=== PATIENT | female | born 1955 | race American Indian/Alaskan Native ===

== ENCOUNTER 2016-12-22 21:33 | Inpatient (IN) | payer BC ==
[2016-12-22] MEDS ORDERED: TYLENOL PO PRN (21:43)
[2016-12-22] MEDS ORDERED: IMODIUM PO PRN (21:44)
[2016-12-22] MEDS ORDERED: HYDROXYZINE 10 MG PO SCH (22:00)
[2016-12-22] MEDS: CATAPRES PO SCH (22:22)
[2016-12-22] MEDS: ATARAX PO SCH (22:53)
[2016-12-23 06:26] LABS: Basophils % (Auto) 0.6 % (0.0-1.8); Eosinophils % (Auto) 1.3 % (0.0-4.3); Hemoglobin 10.4 gm/dl (10.1-14.3); Mean Corpuscular HGB Conc 32 % (30-34); Mean Corpuscular Volume 82 fl (79-97); Platelet Count 308 K/mm3 (140-440); Red Blood Count 4.04 M/mm3 (3.65-5.03); Red Cell Distribution Width 14.8 % (13.2-15.2); White Blood Count 9.4 K/mm3 (4.5-11.0)
[2016-12-23 06:41] LABS: Mean Corpuscular Hemoglobin 26 pg (28-32)
[2016-12-23 06:50] LABS: Albumin 3.4 g/dL (3.9-5); Albumin/Globulin Ratio 0.9 %; BUN/Creatinine Ratio 13.33; Bilirubin,Total 0.2 mg/dL (0.1-1.2); Calcium 8.9 mg/dL (8.4-10.2); Chloride 104.7 mmol/L (98-107); Potassium 4.1 mmol/L (3.6-5.0); Total Protein 7.3 g/dL (6.3-8.2)
[2016-12-23] MEDS ORDERED: LOVENOX SUB-Q SCH (08:00)
[2016-12-23] MEDS: ASPIRIN PO SCH (09:47)
[2016-12-23] MEDS: CATAPRES PO SCH ×2 (09:47→22:54)
[2016-12-23] MEDS: LEVAQUIN PO SCH (09:47)
[2016-12-23] MEDS: HEPARIN SUB-Q SCH ×2 (09:48→22:55)
--- NOTE | 2016-12-23 11:37 | History and Physical Report ---
History of Present Illness Date: 12/23/16 Referring Facility: [facility] Date of admission: 12/22/16 21:33 Chief Complaint: Right acute/subacute sky radiata CVA History of present illness: POST ADMISSION PHYSICIAN EVALUATION ONSET DATE: 12/19/2016 IMPAIRMENT GROUP CODE: 01.1 ETIOLOGIC DIAGNOSIS: Right acute/subacute sky radiata CVA STATUS CHANGES SINCE PREADMISSION SCREENING: PAS has been reviewed. In comparison, pt is with improved blood pressure control; slightly worsened renal function. Pt has been able to initiate in therapy evaluations on today and is noted to have ongoing functional deficits. Pt remains an appropriate candidate for IRU admission. PREVIOUS FUNCTIONAL STATUS: Independent with ADLs, gait, transfers CURRENT FUNCTIONAL STATUS: modA for bed mobility, transfers, and gait; independent to albaA for ADLs HPI 61 y.o. right handed female admitted to [facility] after complaints of feeling "out of it" while at home; later began with left sided weakness and left foot drop. MRI Brain identified acute/subacute ischemia at right sky radiata. Pt continued with left sided weakness; uncontrolled hypertension with SBP range from 141-214. Pt was found to have significant decline from baseline after therapy evaluations were completed. Pt is now admitted to IRU for aggressive therapies and ongoing medical management. Past History Past Medical History: cancer (skin), hypertension, renal failure (chronic), other (ulcerative colitis) Past Surgical History: Social history: , lives with family. denies: smoking, alcohol abuse Family history: CAD, diabetes, hypertension, stroke Medications and Allergies Allergies Allergy/AdvReac Type Severity Reaction Status Date / Time erythromycin base Allergy Swelling Verified 01/07/16 15:25 hydrocodone Allergy Swelling Verified 01/07/16 15:25 Penicillins Allergy Swelling Verified 01/07/16 15:25 Sulfa (Sulfonamide AdvReac DISCOLORATI Verified 11/08/14 17:07 Antibiotics) ON Home Medications Medication Instructions Recorded Confirmed Last Taken Type cloNIDine [Catapres] 0.3 mg PO BID 01/07/16 12/19/16 01/07/16 History Loperamide [Imodium] 4 mg PO BID PRN #20 capsule 01/08/16 12/19/16 Unknown Rx Doxycycline 40 mg PO DAILY 12/19/16 12/19/16 Unknown History QUEtiapine 100 mg PO DAILY 12/19/16 12/19/16 Unknown History hydrOXYzine 10 mg PO HS 12/19/16 12/19/16 Unknown History Aspirin EC [Aspirin Enteric Coated 325 mg PO QDAY #30 tablet. 12/22/16 Unknown Rx TAB] Aspirin [Aspirin TAB] 325 mg PO QDAY tablet 12/22/16 Unknown Rx Levofloxacin [Levaquin TAB] 250 mg PO DAILY 3 Days 12/22/16 Unknown Rx Simvastatin [Zocor TAB] 40 mg PO QHS #30 tablet 12/22/16 Unknown Rx Active Meds: Active Medications Acetaminophen (Tylenol) 650 mg PO Q4H PRN PRN Reason: Pain MILD(1-3)/Fever >100.5/TORRES Aspirin (Aspirin) 325 mg PO QDAY [facility] Last Admin: 12/23/16 09:47 Dose: 325 mg Clonidine HCl (Catapres) 0.3 mg PO BID [facility] Last Admin: 12/23/16 09:47 Dose: 0.3 mg Heparin Sodium (Porcine) (Heparin) 5,000 unit SUB-Q Q12HR [facility] Last Admin: 12/23/16 09:48 Dose: 5,000 unit Hydroxyzine HCl (Atarax) 10 mg PO QHS [facility] Last Admin: 12/22/16 22:53 Dose: 10 mg Levofloxacin (Levaquin) 250 mg PO DAILY [facility] Last Admin: 12/23/16 09:47 Dose: 250 mg Loperamide HCl (Imodium) 4 mg PO BID PRN PRN Reason: Diarrhea Quetiapine Fumarate (Seroquel) 100 mg PO QHS [facility] Simvastatin (Zocor) 40 mg PO QHS [facility] Review of Systems All systems: negative Ears, nose, mouth and throat: no headache Cardiovascular: no chest pain Respiratory: no cough, no shortness of breath Gastrointestinal: constipation, no nausea, no vomiting Genitourinary Female: no dysuria Musculoskeletal: gait dysfunction Neurological: weakness (left extremities), no parathesias Exam - Constitutional Vitals: Vital Signs - 12hr 12/22/16 12/23/16 12/23/16 23:40 01:00 05:00 Temperature 98.8 F Pulse Rate Pulse Rate [ 80 Apical] Pulse Rate [ Right Radial] Pulse Rate [ 78 Right] Respiratory 20 18 18 Rate Blood Pressure Blood Pressure 182/104 [Left Arm] Blood Pressure 160/96 [Right Arm] O2 Sat by Pulse 96 Oximetry 12/23/16 12/23/16 08:30 09:47 Temperature 98.1 F Pulse Rate 92 H Pulse Rate [ Apical] Pulse Rate [ 92 H Right Radial] Pulse Rate [ Right] Respiratory 20 Rate Blood Pressure 161/98 Blood Pressure [Left Arm] Blood Pressure 161/98 [Right Arm] O2 Sat by Pulse 99 Oximetry General appearance: no acute distress - EENT Eyes: EOM intact ENT: hearing intact - Neck Neck: supple, normal ROM - Respiratory Respiratory effort: normal Respiratory: bilateral: CTA - Cardiovascular Rhythm: regular Heart Sounds: Present: S1 & S2 - Extremities Extremities: No edema - Gastrointestinal General gastrointestinal: Present: soft, non-tender, non-distended, normal bowel sounds - Musculoskeletal Musculoskeletal: left sided weakness - Neurologic Neurologic: CNII-XII intact - Psychiatric Psychiatric: appropriate mood/affect, intact judgment & insight, memory intact, cooperative - Allied health notes FIMS assesment as documented by PT/OT/ST: Toileting Toileting Device Bedside Commode Toileting FIM Score 5. Supv./Set-Up (Needs stand-by, set-up, applying prosth/orth.) Social interaction/Memory/Problem solving Social Interaction FIM Score 5. Supervision (Needs supv. <10%. Needs encouragement to participate.) Memory FIM Score 6. Modified Hale(Mild difficulty remembering people/routines.) Problem Solving FIM Score 5. Supervision (Needs cueing <10% to solve routine problems.) Eating Eating FIM Score 5. Supervision/Set-Up (Needs help w/ containers , cutting meat, etc.) - Labs CBC & Chem 7: 12/23/16 05:51 12/23/16 05:51 Labs: Laboratory Results - last 72 hr 12/23/16 12/23/16 05:51 05:51 WBC 9.4 RBC 4.04 Hgb 10.4 Hct 33.0 MCV 82 MCH 26 L MCHC 32 RDW 14.8 Plt Count 308 Lymph % (Auto) 12.3 L Motley % (Auto) 12.1 H Eos % (Auto) 1.3 Baso % (Auto) 0.6 Lymph # 1.1 L Motley # 1.1 H Eos # 0.1 Baso # 0.1 Seg Neutrophils % 73.7 H Seg Neutrophils # 6.9 Sodium 140 Potassium 4.1 Chloride 104.7 Carbon Dioxide 21 L Anion Gap 18 BUN 32 H Creatinine 2.4 H Estimated GFR 25 BUN/Creatinine Ratio 13.33 Glucose 97 Calcium 8.9 Total Bilirubin 0.2 AST 18 ALT 9 Alkaline Phosphatase 62 Total Protein 7.3 Albumin 3.4 L Albumin/Globulin Ratio 0.9 Assessment and Plan Assessment and plan: 61 y.o. right handed female s/p Right acute/subacute sky radiata CVA, left hemiparesis, left foot drop, gait dysfunction. The patient is medically stable , however, requires ongoing medical management. Pt is appropriate for inpatient rehabilitation admission and is thought to be able to tolerate at least 3 hours of therapy a day, 5 days a week including 1 hour of physical therapy, 1 hour of occupational therapy, and 1 hour of speech therapy. Patient is able to understand and follow basic directions and has attainable rehab goals. Potential barriers/complications include Plan 1. Rehabilitation- Pt will undergo multidisciplinary/integrative rehab PT/OT/ LABEL SEWER, Nursing. Areas to be addressed include, but are not limited to PT for mobility, strengthening, transfer training, ROM, endurance, stairs, balance; OT for ADLs, household tasks, adaptive equipment; LABEL SEWER for mild dysarthria, compensatory techniques; Nursing for carryover of therapies, pain control, education, skin integrity, medication management, bowel/bladder management; Nutrition as needed; financial services education consultant for discharge planning and equipment needs. Potential interventions include appropriate assistive device or adaptive equipment; ?need for left AFO. Expected overall level of functional improvement by discharge is Alivia to supervision with ADLs, gait, and transfers. Pt will tentatively be discharged home with outpatient PT/OT. Estimated length of stay is 2-3 weeks. 2. acute right CVA- ongoing left hemiparesis, foot drop, dysarthria, gait dysfunction; PT/OT/LABEL SEWER to address functional deficits 3. HTN- on clonidine at home; follow BP and adjust as needed 4. acute on chronic renal failure, stage 3- mildly elevated from baseline, likely due to dehydration; will recheck in AM; if worsened, will start gentle hydration with IVF 5. skin cancer- aware; actively undergoing chemo prior to admission; under the care of outpt dermatology 6. DVT px- heparin - Patient Problems (1) Acute ischemic stroke Current Visit: No Status: Acute (2) Abnormality of gait following cerebrovascular accident (CVA) Current Visit: No Status: Acute (3) Hemiparesis affecting left side as late effect of cerebrovascular accident Current Visit: No Status: Acute (4) Dysarthria as late effect of cerebrovascular accident (CVA) Current Visit: Yes Status: Acute (5) Left foot drop Current Visit: No Status: Acute (6) HTN (hypertension) Current Visit: No Status: Acute Qualifiers: Hypertension type: unspecified secondary hypertension Qualified Code(s): I15.9 - Secondary hypertension, unspecified; I15 - Secondary hypertension (7) Stage III chronic kidney disease Current Visit: No Status: Chronic (8) Skin cancer Current Visit: Yes Status: Acute
[2016-12-23] MEDS ORDERED: NON-FORMULARY (Quetiapine 100 MG) PO SCH (21:00)
[2016-12-23] MEDS: ZOCOR PO SCH (22:00)
[2016-12-23] MEDS: ATARAX PO SCH (22:30)
[2016-12-24 05:04] LABS: BUN/Creatinine Ratio 16.84; Calcium 8.6 mg/dL (8.4-10.2); Chloride 103.3 mmol/L (98-107); Potassium 3.9 mmol/L (3.6-5.0)
[2016-12-24] MEDS: CATAPRES PO SCH ×2 (09:32→22:54)
[2016-12-24] MEDS: LEVAQUIN PO SCH (09:33)
[2016-12-24] MEDS: HEPARIN SUB-Q SCH ×2 (09:33→22:55)
[2016-12-24] MEDS: ASPIRIN PO SCH (09:33)
--- NOTE | 2016-12-24 15:36 | IRU Plan of Care ---
Interdisciplinary Plan of Care - IP IRU INTERDISCIPLINARY PLAN: [facility] Inpatient Rehab Unit Plan of Care IRU Interdisciplinary Care Plan Start: 12/22/16 22: 14 Freq: Admission then PRN Status: Active Document 12/23/16 17:33 DB (Rec: 12/23/16 17:37 DB [id number]) Interdisciplinary Problem List Interdisciplinary Problem List Interdisciplinary Problem List Impaired Eating/Swallowing Query Text:Answers will Trigger Problems Impaired Bathing/Grooming and Outcomes on Worklist. Impaired Dressing Impaired Mobility Impaired Transfers Impaired Expression Impaired Problem Solving Impaired Memory Pain Management Knowledge Deficits Impaired Skin/Tissue Integrity Impaired Home Management Impaired Safety Medications Education IRU Interdisciplinary Care Plan Therapy Services Therapy Services Will Include: Physical Therapy Query Text:Patient will be seen for a Occupational Therapy minimum of 3 hours of daily therapy 5 Speech Therapy out of 7 days a week. Therapy intensity may be adjusted within a 7 consecutive day period to effectively serve the individual needs of the patient. Treatment Frequency/Intensity/Duration Treatment Frequency 5 days per week Treatment Intensity 1 hour per discipline daily Treatment Duration 10-14 days Problem Area: Eating/Swallowing Eating/Swallowing Outcomes Eating/Swallowing Interventions Problem Area: Bathing/Grooming Bathing/Grooming Outcomes Improve [place] w/ Grooming Improve [place] w/ Bathing Bathing/Grooming Interventions ADL Training Therapeutic Activity Neuromuscular Re-Education Balance Work Activity Tolerance Work Patient/Caregiver Education Problem Area: Dressing Dressing Outcomes Improve [place] w/ UB Dressing Improve [place] w/ LB Dressing Dressing Interventions ADL Training Neuromuscular Re-Education Balance Work Patient/Caregiver Education Problem Area: Mobility Mobility Outcomes Improve [place] w/ Bed Mobility Improve [place] w/ Ambulation Improve [place] w/ Stairs /Curb Improve [place] w/ Wheelchair Mobility Interventions Therapeutic Exercise Neuromuscular Re-Ed. Activity Tolerance Work Use of Assistive Devices Patient/Caregiver Education Bed Mobility Work Gait Training W/C Mobility Work Problem Area: Transfers Transfers Outcomes Improve [place] w/ Bed Transfers Improve [place] w/ Toilet Transfers Improve [place] w/ Tub/ Shower Transfers Improve [place] w/ Car Transfers Transfers Interventions Transfer Training Therapeutic Exercise Neuromuscular Re-Education Activity Tolerance Work Use of Assistive Devices Patient/Caregiver Education Problem Area: Bowel/Bladder Managment Bowel/Bladder Outcomes Bowel/Bladder Interventions Problem Area: Toileting Toileting Outcomes Improve [place] w/ Toileting Toileting Interventions ADL Training Balance Work Patient/Caregiver Education Problem Area: Nutrition Nutrition Outcomes Understand and Comply w/ Diet Improve/Maintain Oral Intake Nutrition Interventions Nutritional Counseling Monitor Nutrient Intake Patient/Caregiver Education Problem Area: Comprehension Comprehension Outcomes Comprehension Interventions Problem Area: Expression Expression Outcomes Improve Intelligibility Expression Interventions Patient/Caregiver Education Problem Area: Problem Solving Problem Solving Outcomes Improve Problem Solving Problem Solving Interventions Cognitive Training Patient/Caregiver Education Problem Area: Memory Memory Outcomes Memory Interventions Problem Area: Pain Management Pain Management Outcomes Demonstrate/Verbalize Pain Strategies Pain Management Interventions Positioning/Turning Patient/Caregiver Education Problem Area: Knowledge Deficits Knowledge Deficits Outcomes Verbalize Precautions Verbalize Understanding of S/S of Stroke Knowledge Deficits Interventions Medication Use Education Disease Management Education Health Maintainence Education Safety Education Problem Area: Skin/Tissue Integrity Skin/Tissue Integrity Outcomes Exhibit Healing of Wound/ Incision Demonstrate Understanding of Pressure Relief Skin/Tissue Integrity Interventions Pressure Relief Instruction Positioning/Turning Problem Area: Social Interaction Social Interaction Outcomes Social Interaction Interventions Problem Area: Adjustment to Disability Adjustment to Disability Outcomes Adjustment to Disability Interventions Problem Area: Discharge Concerns Discharge Concerns Outcomes Discharge w/ Necessary Equipment Have Home Health/Outpatient Services Discharge Concerns Interventions Discharge Planning Family/Caregiver Conference Family/Caregiver Training Problem Area: Community Reintegration Community Reintegration Outcomes Demonstrate Understanding of Community Resources Community Reintegration Interventions Provide Community Resources Problem Area: Home Management Home Management Outcomes Improve [place] w/ Home Management Home Management Interventions Activity Tolerance Work Patient/Caregiver Education Problem Area: Safety Safety Outcomes Provide Safe Environment Perform Selfcare Safely Demonstrate Good Safety w/ Transfers/Mobility Safety Interventions Identify Fall Risk [place] Pt. to Environment Reduce Environmental Hazards Problem Area: Medication Education Medication Education Outcomes Patient/Caregiver will Verbalize Understanding of Medications Medication Education Interventions Explain Administration/Side Effects/Interactions Problem Area: Diabetes Education Diabetes Education Outcomes Diabetes Education Interventions Problem Area: Oxygenation Oxygenation Outcomes Oxygenation Interventions Problem Area: Cardiovascular Cardiovascular Outcomes Cardiovascular Interventions Physician Only Medical Prognosis and Rehabilitation Patient demonstrates good Potential (Completed by Physician) rehab potential. Medical Prognosis: Good This plan of care has been developed based on the findings from the pre- admission assessment, post admission physician evaluation, information gathered from the assessments from all therapy disciplines and other pertinent clinicians. The plan of care has been reviewed and discussed in collaboration with the interdisciplinary team. The plan of care will be reviewed and updated at least weekly. 61 y.o. right handed female s/p Right acute/subacute sky radiata CVA, left hemiparesis, left foot drop, gait dysfunction. The patient remains at risk for falls, extension/recurrent CVA, parasthesias, DVT, PE, spasticity, shoulder subluxation, depression. Will need ongoing monitoring of HTN, acute on chronic renal failure. Pt continues with left sided weakness and subsequent functional deficits. Pt remains an appropriate candidate for IRU admission.
[2016-12-24] MEDS: ZOCOR PO SCH (21:53)
[2016-12-24] MEDS: ATARAX PO SCH (21:53)
[2016-12-25] MEDS: ASPIRIN PO SCH (09:49)
[2016-12-25] MEDS: HEPARIN SUB-Q SCH ×2 (09:50→22:40)
[2016-12-25] MEDS: LEVAQUIN PO SCH (09:57)
[2016-12-25] MEDS: CATAPRES PO SCH ×2 (10:04→22:38)
[2016-12-25] MEDS: ZOCOR PO SCH (21:38)
[2016-12-25] MEDS: ATARAX PO SCH (21:39)
[2016-12-26 05:17] LABS: BUN/Creatinine Ratio 18.88; Calcium 8.9 mg/dL (8.4-10.2); Chloride 107.2 mmol/L (98-107); Potassium 4.3 mmol/L (3.6-5.0)
[2016-12-26] MEDS: CATAPRES PO SCH ×2 (07:44→22:44)
[2016-12-26] MEDS: ASPIRIN PO SCH (09:41)
[2016-12-26] MEDS: LEVAQUIN PO SCH (09:41)
[2016-12-26] MEDS: HEPARIN SUB-Q SCH ×2 (09:42→22:46)
--- NOTE | 2016-12-26 14:34 | Progress Note ---
Assessment and Plan 61 y.o. right handed female s/p Right acute/subacute sky radiata CVA, left hemiparesis, left foot drop, gait dysfunction - acute right CVA- ASA, statin - gait dysfunction secondary to CVA- tolerating gait training; no dizziness reported; utilizing dorsiflexion wrap with ambulation, will likely require AFO due to foot drop - HTN- BP elevated with clonidine as single agent; add norvasc; follow - acute on chronic renal failure, stage 3- creatinine improved; continue to follow - skin cancer- aware; actively undergoing chemo prior to admission; under the care of outpt dermatology - DVT px- heparin - Patient Problems (1) Acute ischemic stroke Current Visit: No Status: Acute (2) Abnormality of gait following cerebrovascular accident (CVA) Current Visit: No Status: Acute (3) Hemiparesis affecting left side as late effect of cerebrovascular accident Current Visit: No Status: Acute (4) Left foot drop Current Visit: No Status: Acute (5) HTN (hypertension) Current Visit: No Status: Acute Qualifiers: Hypertension type: unspecified secondary hypertension Qualified Code(s): I15.9 - Secondary hypertension, unspecified; I15 - Secondary hypertension (6) Stage III chronic kidney disease Current Visit: No Status: Chronic (7) Skin cancer Current Visit: Yes Status: Acute Subjective Date of service: 12/26/16 Principal diagnosis: Right acute/subacute sky radiata CVA Interval history: Pt seen with PT this AM, F/U IPR course, Right acute/subacute sky radiata CVA. Pt observed completing gait training; no complaints Objective - Constitutional Vitals: Vital Signs - 12hr 12/26/16 07:44 Pulse Rate 75 Blood Pressure 195/105 General appearance: Present: no acute distress - EENT Eyes: EOM intact ENT: hearing intact - Neck Neck: supple, normal ROM - Respiratory Respiratory effort: normal Extremities: No edema - Musculoskeletal Musculoskeletal: left sided weakness (LUE in sling, dorsiflexion wrap to LLE during gait training) - Neurologic Neurologic: no gait normal - Psychiatric Psychiatric: appropriate mood/affect, cooperative - Allied health notes Allied health notes reviewed: PT (Cindy/CGA for transfers; Cindy for gait up to 125 feet), OT (min-modA for transfers; Cindy for toileting) - Labs CBC & Chem 7: 12/23/16 05:51 12/26/16 04:38 Labs: Abnormal lab results 12/26/16 Range/Units 04:38 Chloride 107.2 H (98-107) mmol/L Carbon Dioxide 21 L (22-30) mmol/L BUN 34 H (7-17) mg/dL Creatinine 1.8 H (0.7-1.2) mg/dL
[2016-12-26] MEDS: ATARAX PO SCH (22:44)
[2016-12-26] MEDS: ZOCOR PO SCH (22:45)
[2016-12-27] MEDS: LEVAQUIN PO SCH (09:35)
[2016-12-27] MEDS: CATAPRES PO SCH ×2 (09:35→21:08)
[2016-12-27] MEDS: HEPARIN SUB-Q SCH ×2 (09:36→21:09)
[2016-12-27] MEDS: NORVASC PO SCH (09:36)
[2016-12-27] MEDS: ASPIRIN PO SCH (09:37)
--- NOTE | 2016-12-27 16:18 | Progress Note ---
Assessment and Plan 61 y.o. right handed female s/p Right acute/subacute sky radiata CVA, left hemiparesis, left foot drop, gait dysfunction - acute right CVA- ASA, statin - gait dysfunction secondary to CVA- min-modA for gait training; custom AFO to be ordered - HTN- norvasc added on yesterday; follow - acute on chronic renal failure, stage 3- recheck labs on - skin cancer- aware; actively undergoing chemo prior to admission; under the care of outpt dermatology; restart home ABX - DVT px- heparin - team conference held on today- pt is supervision for eating; Alivia for grooming ; min-modA for remaining ADLs, except maxA for shower transfer on evaluation; Cindy for sit-stand transfers; ambulating 120 feet min-modA with HW and dorsiflexion wrap; modA for stairs; Cindy for memory. Barriers- left sided weakness, foot drop. Tentative d/c date is 01/06 - Patient Problems (1) Acute ischemic stroke Current Visit: No Status: Acute (2) Abnormality of gait following cerebrovascular accident (CVA) Current Visit: No Status: Acute (3) Hemiparesis affecting left side as late effect of cerebrovascular accident Current Visit: No Status: Acute (4) Left foot drop Current Visit: No Status: Acute (5) HTN (hypertension) Current Visit: No Status: Acute Qualifiers: Hypertension type: unspecified secondary hypertension Qualified Code(s): I15.9 - Secondary hypertension, unspecified; I15 - Secondary hypertension (6) Stage III chronic kidney disease Current Visit: No Status: Chronic (7) Skin cancer Current Visit: Yes Status: Acute Subjective Date of service: 12/27/16 Principal diagnosis: Right acute/subacute sky radiata CVA Interval history: Pt seen this AM in therapy, F/U IPR course, Right acute/subacute sky radiata CVA. Tolerating therapies well; home ABX clarified on today Objective - Constitutional Vitals: Vital Signs - 12hr 12/27/16 12/27/16 08:15 09:35 Temperature 97.2 F L Pulse Rate 76 Pulse Rate [ 76 Right Brachial] Respiratory 22 Rate Blood Pressure 196/98 Blood Pressure 196/98 [Right Arm] O2 Sat by Pulse 100 Oximetry General appearance: Present: no acute distress - EENT Eyes: EOM intact ENT: hearing intact - Neck Neck: supple, normal ROM - Respiratory Respiratory effort: normal Extremities: No edema - Musculoskeletal Musculoskeletal: left sided weakness - Neurologic Neurologic: CNII-XII intact - Psychiatric Psychiatric: appropriate mood/affect, intact judgment & insight, memory intact, cooperative - Labs CBC & Chem 7: 12/23/16 05:51 12/26/16 04:38
[2016-12-27] MEDS: DOXYCYCLINE 40 MG PO SCH (19:50)
[2016-12-27] MEDS ORDERED: DULCOLAX PR PRN (19:55)
[2016-12-27] MEDS: ATARAX PO SCH (21:08)
[2016-12-27] MEDS: ZOCOR PO SCH (21:09)
[2016-12-28] MEDS: DOXYCYCLINE 40 MG PO SCH (09:34)
[2016-12-28] MEDS: LEVAQUIN PO SCH (09:34)
[2016-12-28] MEDS: HEPARIN SUB-Q SCH ×2 (09:34→22:58)
[2016-12-28] MEDS: CATAPRES PO SCH ×2 (09:36→22:53)
[2016-12-28] MEDS: ASPIRIN PO SCH (09:36)
[2016-12-28] MEDS: NORVASC PO SCH (09:37)
--- NOTE | 2016-12-28 16:02 | Progress Note ---
Assessment and Plan 61 y.o. right handed female s/p Right acute/subacute sky radiata CVA, left hemiparesis, left foot drop, gait dysfunction - acute right CVA- ASA, statin - gait dysfunction secondary to CVA- min-modA for gait training; custom AFO ordered - HTN- norvasc added; continue to follow; may require midday dose of clonidine - acute on chronic renal failure, stage 3- recheck labs on tomorrow - skin cancer- aware; actively undergoing chemo prior to admission; under the care of outpt dermatology; continue home ABX - DVT px- heparin - Patient Problems (1) Acute ischemic stroke Current Visit: No Status: Acute (2) Abnormality of gait following cerebrovascular accident (CVA) Current Visit: No Status: Acute (3) Hemiparesis affecting left side as late effect of cerebrovascular accident Current Visit: No Status: Acute (4) Left foot drop Current Visit: No Status: Acute (5) HTN (hypertension) Current Visit: No Status: Acute Qualifiers: Hypertension type: unspecified secondary hypertension Qualified Code(s): I15.9 - Secondary hypertension, unspecified; I15 - Secondary hypertension (6) Stage III chronic kidney disease Current Visit: No Status: Chronic (7) Skin cancer Current Visit: Yes Status: Acute Subjective Date of service: 12/28/16 Principal diagnosis: Right acute/subacute sky radiata CVA Interval history: Pt seen in room this AM, F/U IPR course, Right acute/subacute sky radiata CVA. Constipation resolved overnight after suppository; elevated BP Objective - Constitutional Vitals: Vital Signs - 12hr 12/28/16 12/28/16 12/28/16 05:00 06:38 09:36 Pulse Rate 104 H Pulse Rate [ 100 H Right] Respiratory 22 Rate Blood Pressure 190/110 Blood Pressure 180/96 186/98 [Right Arm] 12/28/16 09:37 Pulse Rate 104 H Pulse Rate [ Right] Respiratory Rate Blood Pressure 190/110 Blood Pressure [Right Arm] General appearance: Present: no acute distress, other ( present in room) - EENT Eyes: EOM intact ENT: hearing intact - Neck Neck: supple, normal ROM - Respiratory Respiratory effort: normal - Musculoskeletal Musculoskeletal: left sided weakness - Neurologic Neurologic: CNII-XII intact - Psychiatric Psychiatric: appropriate mood/affect, cooperative - Allied health notes Allied health notes reviewed: nursing (supervision to Cindy for ADLs with nursing ), PT (Cindy for transfers; min-modA for gait) - Labs CBC & Chem 7: 12/23/16 05:51 12/26/16 04:38
[2016-12-28] MEDS: ZOCOR PO SCH (22:54)
[2016-12-28] MEDS: ATARAX PO SCH (22:55)
[2016-12-29 05:15] LABS: BUN/Creatinine Ratio 17.91; Calcium 8.9 mg/dL (8.4-10.2); Potassium 4.1 mmol/L (3.6-5.0)
[2016-12-29] MEDS: DOXYCYCLINE 40 MG PO SCH (10:11)
[2016-12-29] MEDS: LEVAQUIN PO SCH (10:12)
[2016-12-29] MEDS: NORVASC PO SCH (10:12)
[2016-12-29] MEDS: ASPIRIN PO SCH (10:13)
[2016-12-29] MEDS: CATAPRES PO SCH ×2 (10:14→21:41)
[2016-12-29] MEDS: HEPARIN SUB-Q SCH ×2 (10:15→21:46)
--- NOTE | 2016-12-29 15:42 | Progress Note ---
Assessment and Plan 61 y.o. right handed female s/p Right acute/subacute sky radiata CVA, left hemiparesis, left foot drop, gait dysfunction - acute right CVA- ASA, statin - gait dysfunction secondary to CVA- much improved gait distance since admission , Cindy-CGA - HTN- improved BP control on today; continue to follow - acute on chronic renal failure, stage 3- Nephrology consulted - skin cancer- aware; actively undergoing chemo prior to admission; under the care of outpt dermatology; continue home ABX, daily doxycycline - DVT px- heparin - Patient Problems (1) Acute ischemic stroke Current Visit: No Status: Acute (2) Abnormality of gait following cerebrovascular accident (CVA) Current Visit: No Status: Acute (3) Hemiparesis affecting left side as late effect of cerebrovascular accident Current Visit: No Status: Acute (4) Left foot drop Current Visit: No Status: Acute (5) HTN (hypertension) Current Visit: No Status: Acute Qualifiers: Hypertension type: unspecified secondary hypertension Qualified Code(s): I15.9 - Secondary hypertension, unspecified; I15 - Secondary hypertension (6) Stage III chronic kidney disease Current Visit: No Status: Chronic (7) Skin cancer Current Visit: Yes Status: Acute Subjective Date of service: 12/29/16 Principal diagnosis: Right acute/subacute sky radiata CVA Interval history: Pt seen in dining room this afternoon, F/U IPR course, Right acute/subacute sky radiata CVA. Reports having a much better night; BP improved; worsening renal function, sees Dr. Rodriguez outpt Objective - Constitutional Vitals: Vital Signs - 12hr 12/29/16 12/29/16 12/29/16 08:00 10:12 10:14 Temperature 97.6 F Pulse Rate 86 86 Pulse Rate [ 86 Right Brachial] Respiratory 18 Rate Blood Pressure 137/81 137/81 Blood Pressure 137/81 [Right Arm] O2 Sat by Pulse 100 Oximetry General appearance: Present: no acute distress, other (daugther present) - EENT Eyes: EOM intact ENT: hearing intact - Neck Neck: supple, normal ROM - Respiratory Respiratory effort: normal Extremities: No edema - Musculoskeletal Musculoskeletal: left sided weakness - Neurologic Neurologic: CNII-XII intact - Psychiatric Psychiatric: appropriate mood/affect, intact judgment & insight, memory intact, cooperative - Allied health notes Allied health notes reviewed: PT (CGA for transfers; CGA-Cindy for gait up to 250 feet) - Labs CBC & Chem 7: 12/23/16 05:51 12/29/16 04:45 Labs: Abnormal lab results 12/29/16 Range/Units 04:45 Sodium 135 L (137-145) mmol/L Carbon Dioxide 21 L (22-30) mmol/L BUN 43 H (7-17) mg/dL Creatinine 2.4 H (0.7-1.2) mg/dL
[2016-12-29] MEDS: ZOCOR PO SCH (20:49)
[2016-12-29] MEDS: ATARAX PO SCH (20:49)
[2016-12-30] MEDS: CATAPRES PO SCH ×2 (10:33→21:49)
[2016-12-30] MEDS: DOXYCYCLINE 40 MG PO SCH (10:35)
[2016-12-30] MEDS: NORVASC PO SCH (10:35)
[2016-12-30] MEDS: ASPIRIN PO SCH (10:35)
[2016-12-30] MEDS: HEPARIN SUB-Q SCH ×2 (10:37→22:45)
--- NOTE | 2016-12-30 12:42 | Progress Note ---
Assessment and Plan 61 y.o. right handed female s/p Right acute/subacute sky radiata CVA, left hemiparesis, left foot drop, gait dysfunction - acute right CVA- ASA, statin - gait dysfunction secondary to CVA- ambulating up to 250 feet with HW - HTN- much improved; continue current regimen - acute on chronic renal failure, stage 3- Nephrology consulted - skin cancer- aware; actively undergoing chemo prior to admission; under the care of outpt dermatology; continue home ABX, daily doxycycline - bowel regimen- colace BID; dulcolax suppository prn - DVT px- heparin - Patient Problems (1) Acute ischemic stroke Current Visit: No Status: Acute (2) Abnormality of gait following cerebrovascular accident (CVA) Current Visit: No Status: Acute (3) Hemiparesis affecting left side as late effect of cerebrovascular accident Current Visit: No Status: Acute (4) Left foot drop Current Visit: No Status: Acute (5) HTN (hypertension) Current Visit: No Status: Acute Qualifiers: Hypertension type: unspecified secondary hypertension Qualified Code(s): I15.9 - Secondary hypertension, unspecified; I15 - Secondary hypertension (6) Stage III chronic kidney disease Current Visit: No Status: Chronic (7) Skin cancer Current Visit: Yes Status: Acute Subjective Date of service: 12/30/16 Principal diagnosis: Right acute/subacute sky radiata CVA Interval history: Pt seen in [facility] this afternoon, F/U IPR course, Right acute/subacute sky radiata CVA. requesting suppository; otherwise, no new complaints Objective - Constitutional Vitals: Vital Signs - 12hr 12/30/16 12/30/16 07:53 10:33 Temperature 97.6 F Pulse Rate 65 Pulse Rate [ 65 Right Brachial] Respiratory 18 Rate Blood Pressure 127/71 Blood Pressure 127/71 [Right Arm] O2 Sat by Pulse 100 Oximetry General appearance: Present: no acute distress, other (sitting up in WC) - EENT Eyes: EOM intact ENT: hearing intact - Neck Neck: supple, normal ROM - Respiratory Respiratory effort: normal Extremities: No edema - Musculoskeletal Musculoskeletal: left sided weakness (LUE flaccid) - Neurologic Neurologic: CNII-XII intact, other (sensation grossly intact) - Psychiatric Psychiatric: appropriate mood/affect, cooperative - Allied health notes Allied health notes reviewed: PT (CGA-Cindy for gait), OT (min-modA for transfers ) - Labs CBC & Chem 7: 12/23/16 05:51 12/29/16 04:45
[2016-12-30] MEDS: COLACE PO SCH (21:35)
[2016-12-30] MEDS: ATARAX PO SCH (21:35)
[2016-12-30] MEDS: ZOCOR PO SCH (21:36)
--- NOTE | 2016-12-31 07:03 | Consultation ---
History of Present Illness - Reason for Consult Consult date: 12/30/16 chronic renal failure - History of Present Illness Mrs. Oseguera is a 61yo with stage III CKD and HTN admitted to inpatient rehab followin hospitalization for acute/subacute CVA. Patient w/ residual left side weakness. At present, she has no complaints. Past History Past Medical History: cancer (skin), hypertension, renal failure (chronic), other (ulcerative colitis) Past Surgical History: Social history: , lives with family. denies: smoking, alcohol abuse Family history: CAD, diabetes, hypertension, stroke Medications and Allergies Allergies Allergy/AdvReac Type Severity Reaction Status Date / Time erythromycin base Allergy Swelling Verified 01/07/16 15:25 hydrocodone Allergy Swelling Verified 01/07/16 15:25 Penicillins Allergy Swelling Verified 01/07/16 15:25 Sulfa (Sulfonamide AdvReac DISCOLORATI Verified 11/08/14 17:07 Antibiotics) ON Home Medications Medication Instructions Recorded Confirmed Last Taken Type cloNIDine [Catapres] 0.3 mg PO BID 01/07/16 12/25/16 01/07/16 History Loperamide [Imodium] 4 mg PO BID PRN #20 capsule 01/08/16 12/25/16 Unknown Rx Doxycycline 40 mg PO DAILY 12/19/16 12/25/16 Unknown History QUEtiapine 100 mg PO DAILY 12/19/16 12/25/16 Unknown History hydrOXYzine 10 mg PO HS 12/19/16 12/25/16 Unknown History Aspirin EC [Aspirin Enteric Coated 325 mg PO QDAY #30 tablet. 12/22/16 Unknown Rx TAB] Aspirin [Aspirin TAB] 325 mg PO QDAY tablet 12/22/16 12/25/16 Unknown Rx Levofloxacin [Levaquin TAB] 250 mg PO DAILY 3 Days 12/22/16 12/25/16 Unknown Rx Simvastatin [Zocor TAB] 40 mg PO QHS #30 tablet 12/22/16 12/25/16 Unknown Rx Active Meds: Active Medications Acetaminophen (Tylenol) 650 mg PO Q4H PRN PRN Reason: Pain MILD(1-3)/Fever >100.5/TORRES Amlodipine Besylate (Norvasc) 5 mg PO QDAY [facility] Last Admin: 12/30/16 10:35 Dose: 5 mg Aspirin (Aspirin) 325 mg PO QDAY [facility] Last Admin: 12/30/16 10:35 Dose: 325 mg Bisacodyl (Dulcolax) 10 mg AR QDAY PRN PRN Reason: Constipation Last Admin: 12/27/16 21:07 Dose: 10 mg Clonidine HCl (Catapres) 0.3 mg PO BID [facility] Last Admin: 12/30/16 21:49 Dose: 0.3 mg Docusate Sodium (Colace) 100 mg PO BID [facility] Last Admin: 12/30/16 21:35 Dose: 100 mg Heparin Sodium (Porcine) (Heparin) 5,000 unit SUB-Q Q12HR [facility] Last Admin: 12/30/16 22:45 Dose: 5,000 unit Hydroxyzine HCl (Atarax) 10 mg PO QHS [facility] Last Admin: 12/30/16 21:35 Dose: 10 mg Loperamide HCl (Imodium) 4 mg PO BID PRN PRN Reason: Diarrhea Miscellaneous Medication (Doxycycline) 40 mg PO DAILY [facility] Last Admin: 12/30/16 10:35 Dose: 40 mg Quetiapine Fumarate (Seroquel) 100 mg PO QHS [facility] Last Admin: 12/30/16 21:34 Dose: 100 mg Simvastatin (Zocor) 20 mg PO QHS [facility] Last Admin: 12/30/16 21:36 Dose: 20 mg Review of Systems Constitutional: no fever, no chills, no sweats Cardiovascular: no chest pain, no orthopnea, no shortness of breath Respiratory: no cough Gastrointestinal: no abdominal pain, no nausea, no vomiting, no diarrhea Integumentary: no rash Neurological: weakness (left arm/leg) Exam - Vital Signs Vital signs: Vital Signs Temp Pulse Resp BP 98.8 F 100 H 20 182/104 12/22/16 22:14 12/22/16 22:14 12/22/16 22:14 12/22/16 22:14 - General Appearance General appearance: well-developed, well-nourished EENT: ATNC Respiratory: Clear to Ascultation Heart: regular, S1S2 Gastrointestinal: Present: normal. Absent: tenderness, distended Integumentary: no rash Neurologic: alert and oriented x3 Musculoskeletal: Present: other (no edema) Psychiatric: mood/affect appropriate, cooperative Results - Lab Results 12/23/16 05:51 12/29/16 04:45 Most recent lab results Calcium 8.9 mg/dL (8.4-10.2) 12/29/16 04:45 Assessment and Plan Impression: * Acute/subacute CVA w/ residual left side weakness * Stage III CKD - baseline SCr 1.8-2.0mg/dL * Hypertension Plan: * Renal function slightly elevated above baseline * Encouraged po hydration * AM labs ordered * Continue antiHTN medications * Dose medications for renal function * Avoid potential nephrotoxins
[2016-12-31 08:05] LABS: BUN/Creatinine Ratio 22.4; Calcium 9.8 mg/dL (8.4-10.2); Chloride 107.2 mmol/L (98-107)
[2016-12-31] MEDS: NORVASC PO SCH (09:26)
[2016-12-31] MEDS: COLACE PO SCH ×2 (09:26→22:14)
[2016-12-31] MEDS: ASPIRIN PO SCH (09:26)
[2016-12-31] MEDS: CATAPRES PO SCH ×2 (09:27→22:11)
[2016-12-31] MEDS: DOXYCYCLINE 40 MG PO SCH (09:30)
[2016-12-31] MEDS: HEPARIN SUB-Q SCH ×2 (09:30→22:26)
--- NOTE | 2016-12-31 13:31 | Progress Note ---
Assessment and Plan Impression: * Acute/subacute CVA w/ residual left side weakness * Stage III CKD - baseline SCr 1.8-2.0mg/dL * Hypertension Plan: * Renal function slightly elevated above baseline * Encouraged po hydration * gentle ivfs x 24hrs * AM labs ordered * Continue antiHTN medications * Dose medications for renal function * Avoid potential nephrotoxins Subjective Date of service: 12/31/16 Principal diagnosis: Right acute/subacute sky radiata CVA Interval history: resting well in bed today Objective - Exam Narrative Exam: General appearance: well-developed, well-nourished EENT: ATNC Respiratory: Clear to Ascultation Heart: regular, S1S2 Gastrointestinal: Present: normal. Absent: tenderness, distended Integumentary: no rash Neurologic: alert and oriented x3 Musculoskeletal: Present: other (no edema) Psychiatric: mood/affect appropriate, cooperative - Vital Signs Vital signs: Vital Signs - 12hr 12/31/16 12/31/16 08:32 09:26 Pulse Rate 68 Pulse Rate [ 68 Right Radial] Respiratory 18 Rate Blood Pressure 162/87 Blood Pressure 162/87 [Right Arm] - Lab 12/23/16 05:51 12/31/16 07:36 Most recent lab results Calcium 9.8 mg/dL (8.4-10.2) 12/31/16 07:36
[2016-12-31] MEDS ORDERED: NACL 0.45% 1000 ML 1,000 ML IV SCH (14:00)
[2016-12-31 21:43] LABS: Bilirubin,Urine NEG (Negative); Blood,Urine SM (Negative); Ketones,Urine NEG (Negative); Leukocyte Esterase,Urine TR (Negative); Nitrite,Urine NEG (Negative); Urobilinogen,Urine < 2.0 mg/dL (<2.0)
[2016-12-31] MEDS: ATARAX PO SCH (22:09)
[2016-12-31] MEDS: ZOCOR PO SCH (22:10)
[2017-01-01 05:42] LABS: BUN/Creatinine Ratio 22.38; Chloride 110.7 mmol/L (98-107); Potassium 4.1 mmol/L (3.6-5.0)
--- NOTE | 2017-01-01 08:08 | Progress Note ---
Assessment and Plan Impression: * Acute/subacute CVA w/ residual left side weakness * Stage III CKD - baseline SCr 1.8-2.0mg/dL * Hypertension * pyuria Plan: * Renal function improved today * Encouraged po hydration * gentle ivfs x 24hrs * AM labs ordered * po abx for uti/pyuria * Continue antiHTN medications * Dose medications for renal function * Avoid potential nephrotoxins Subjective Date of service: 01/01/17 Principal diagnosis: Right acute/subacute sky radiata CVA Interval history: resting well in bed today Objective - Exam Narrative Exam: General appearance: well-developed, well-nourished EENT: ATNC Respiratory: Clear to Ascultation Heart: regular, S1S2 Gastrointestinal: Present: normal. Absent: tenderness, distended Integumentary: no rash Neurologic: alert and oriented x3 Musculoskeletal: Present: other (no edema) Psychiatric: mood/affect appropriate, cooperative - Vital Signs Vital signs: Vital Signs - 12hr 12/31/16 12/31/16 22:00 22:11 Pulse Rate 76 Pulse Rate [ 78 Right Brachial] Pulse Rate [ 78 Right Radial] Pulse Rate [ 78 Right] Respiratory 16 Rate Blood Pressure 163/97 O2 Sat by Pulse 99 Oximetry - Lab 12/23/16 05:51 01/01/17 04:47 Most recent lab results Calcium 9.0 mg/dL (8.4-10.2) 01/01/17 04:47
[2017-01-01] MEDS: ASPIRIN PO SCH (10:02)
[2017-01-01] MEDS: NORVASC PO SCH (10:02)
[2017-01-01] MEDS: COLACE PO SCH ×3 (10:03→22:58)
[2017-01-01] MEDS: HEPARIN SUB-Q SCH ×2 (10:03→22:58)
[2017-01-01] MEDS: DOXYCYCLINE 40 MG PO SCH (10:03)
[2017-01-01] MEDS: CATAPRES PO SCH ×2 (10:03→21:36)
[2017-01-01] MEDS: ZOCOR PO SCH (21:37)
[2017-01-01] MEDS: ATARAX PO SCH (21:37)
[2017-01-02 06:40] LABS: Calcium 9.4 mg/dL (8.4-10.2); Chloride 107.7 mmol/L (98-107); Potassium 4.3 mmol/L (3.6-5.0)
--- NOTE | 2017-01-02 08:05 | Progress Note ---
Assessment and Plan Impression: * Acute/subacute CVA w/ residual left side weakness * Stage III CKD - baseline SCr 1.8-2.0mg/dL * Hypertension * pyuria Plan: * Renal function improved today * Encouraged po hydration * s/p gentle ivfs x 24hrs * AM labs ordered * po abx for uti/pyuria x 3 dys * Continue antiHTN medications * Dose medications for renal function * Avoid potential nephrotoxins Subjective Date of service: 01/02/17 Principal diagnosis: Right acute/subacute sky radiata CVA Interval history: resting well in bed today Objective - Exam Narrative Exam: General appearance: well-developed, well-nourished EENT: ATNC Respiratory: Clear to Ascultation Heart: regular, S1S2 Gastrointestinal: Present: normal. Absent: tenderness, distended Integumentary: no rash Neurologic: alert and oriented x3 Musculoskeletal: Present: other (no edema) Psychiatric: mood/affect appropriate, cooperative - Vital Signs Vital signs: Vital Signs - 12hr 01/01/17 21:36 Pulse Rate 84 Blood Pressure 176/97 - Lab 12/23/16 05:51 01/02/17 05:52 Most recent lab results Calcium 9.4 mg/dL (8.4-10.2) 01/02/17 05:52
[2017-01-02] MEDS: CATAPRES PO SCH ×2 (10:00→22:19)
[2017-01-02] MEDS: ASPIRIN PO SCH (10:00)
[2017-01-02] MEDS: HEPARIN SUB-Q SCH ×2 (10:01→22:20)
[2017-01-02] MEDS: COLACE PO SCH ×2 (10:01→22:18)
[2017-01-02] MEDS: NORVASC PO SCH (10:01)
[2017-01-02] MEDS: DOXYCYCLINE 40 MG PO SCH (10:04)
--- NOTE | 2017-01-02 16:19 | Progress Note ---
Assessment and Plan 61 y.o. right handed female s/p Right acute/subacute sky radiata CVA, left hemiparesis, left foot drop, gait dysfunction - acute right CVA- ASA, statin - gait dysfunction secondary to CVA- Cindy for gait with large based quad cane - HTN- elevated overnight, ?secondary to IVF, now d/c'd; follow and adjust meds if needed - acute on chronic renal failure, stage 3- Nephrology following; improving - skin cancer- aware; actively undergoing chemo prior to admission; under the care of outpt dermatology; continue home ABX, daily doxycycline - bowel regimen- colace BID; dulcolax suppository prn - DVT px- heparin - Patient Problems (1) Acute ischemic stroke Current Visit: No Status: Acute (2) Abnormality of gait following cerebrovascular accident (CVA) Current Visit: No Status: Acute (3) Hemiparesis affecting left side as late effect of cerebrovascular accident Current Visit: No Status: Acute (4) Left foot drop Current Visit: No Status: Acute (5) HTN (hypertension) Current Visit: No Status: Chronic Qualifiers: Hypertension type: H (6) Stage III chronic kidney disease Current Visit: No Status: Chronic (7) Skin cancer Current Visit: Yes Status: Chronic Subjective Date of service: 01/02/17 Principal diagnosis: Right acute/subacute sky radiata CVA Interval history: Pt seen in OT this AM, F/U IPR course, Right acute/subacute sky radiata CVA. BP elevated this AM; no new complaints; required safety education to prevent falls Objective - Constitutional Vitals: Vital Signs - 12hr 01/02/17 01/02/17 08:00 10:00 Temperature 97.5 F L Pulse Rate 73 Pulse Rate [ 73 73 Left Brachial] Respiratory 20 Rate Blood Pressure 159/93 Blood Pressure 159/93 [Right Arm] O2 Sat by Pulse 99 99 Oximetry General appearance: Present: no acute distress, other (sitting up on edge of mat in OT) - EENT Eyes: EOM intact ENT: hearing intact - Neck Neck: supple, normal ROM - Respiratory Respiratory effort: normal Respiratory: bilateral: CTA - Cardiovascular Rhythm: regular Heart Sounds: Present: S1 & S2 Extremities: No edema - Gastrointestinal General gastrointestinal: Present: soft, non-tender, non-distended, normal bowel sounds - Musculoskeletal Musculoskeletal: left sided weakness (2/5 knee extension; flaccid LUE) - Neurologic Neurologic: CNII-XII intact - Psychiatric Psychiatric: appropriate mood/affect, intact judgment & insight, memory intact, cooperative - Allied health notes Allied health notes reviewed: PT (CGA-SBA for transfers; Cindy 170 feet LBQC), OT (Cindy bed mobility; CGA for transfers) - Labs CBC & Chem 7: 12/23/16 05:51 01/02/17 05:52 Labs: Abnormal lab results 01/02/17 Range/Units 05:52 Chloride 107.7 H (98-107) mmol/L BUN 32 H (7-17) mg/dL Creatinine 2.0 H (0.7-1.2) mg/dL
[2017-01-02] MEDS: ATARAX PO SCH (22:18)
[2017-01-02] MEDS: ZOCOR PO SCH (22:18)
[2017-01-03 05:23] LABS: Calcium 9.3 mg/dL (8.4-10.2); Chloride 108.8 mmol/L (98-107); Potassium 4.3 mmol/L (3.6-5.0)
--- NOTE | 2017-01-03 07:44 | Progress Note ---
Assessment and Plan Impression: * Acute/subacute CVA w/ residual left side weakness * Stage III CKD - baseline SCr 1.8-2.0mg/dL * Hypertension * pyuria Plan: * Renal function stable today * Encouraged po hydration * s/p gentle ivfs cr now back to baseline * AM labs ordered * po abx for uti/pyuria x 3 dys * Continue antiHTN medications * Dose medications for renal function * Avoid potential nephrotoxins Subjective Date of service: 01/03/17 Principal diagnosis: Right acute/subacute sky radiata CVA Interval history: resting well in bed today Objective - Exam Narrative Exam: General appearance: well-developed, well-nourished EENT: ATNC Respiratory: Clear to Ascultation Heart: regular, S1S2 Gastrointestinal: Present: normal. Absent: tenderness, distended Integumentary: no rash Neurologic: alert and oriented x3 Musculoskeletal: Present: other (no edema) Psychiatric: mood/affect appropriate, cooperative - Vital Signs Vital signs: Vital Signs - 12hr 01/02/17 20:00 Temperature 97.1 F L Pulse Rate [ 72 Left Brachial] Respiratory 20 Rate Blood Pressure 147/90 [Right Arm] O2 Sat by Pulse 100 Oximetry - Lab 12/23/16 05:51 01/03/17 04:41 Most recent lab results Calcium 9.3 mg/dL (8.4-10.2) 01/03/17 04:41
[2017-01-03] MEDS: CATAPRES PO SCH ×2 (09:37→22:23)
[2017-01-03] MEDS: COLACE PO SCH ×2 (09:37→22:23)
[2017-01-03] MEDS: ASPIRIN PO SCH (09:37)
[2017-01-03] MEDS: NORVASC PO SCH (09:39)
[2017-01-03] MEDS: DOXYCYCLINE 40 MG PO SCH ×2 (09:43→09:47)
[2017-01-03] MEDS: HEPARIN SUB-Q SCH ×2 (12:52→22:55)
--- NOTE | 2017-01-03 17:15 | Progress Note ---
Assessment and Plan 61 y.o. right handed female s/p Right acute/subacute sky radiata CVA, left hemiparesis, left foot drop, gait dysfunction - acute right CVA- ASA, statin - gait dysfunction secondary to CVA- progressed to CGA for gait - HTN- stable on today - acute on chronic renal failure, stage 3- Nephrology following; improving - skin cancer- aware; actively undergoing chemo prior to admission; under the care of outpt dermatology; continue home ABX, daily doxycycline - bowel regimen- colace BID; dulcolax suppository prn - DVT px- heparin - team conference held on today- pt is s/u for eating and UB dressing; Cindy for bathing, LB dressing; min-modA for transfers; modA for grooming, toileting; SBA for bed mobility, supervision for wheelchair mobility; ambulating 170 feet CGA, CGA for stairs. supervision for problem solving. Pt is progressing well and would benefit from extension of course to continue to address functional deficits; anticipated d/c is now 01/11 - Patient Problems (1) Acute ischemic stroke Current Visit: No Status: Acute (2) Abnormality of gait following cerebrovascular accident (CVA) Current Visit: No Status: Acute (3) Hemiparesis affecting left side as late effect of cerebrovascular accident Current Visit: No Status: Acute (4) Left foot drop Current Visit: No Status: Acute (5) HTN (hypertension) Current Visit: No Status: Chronic Qualifiers: Hypertension type: H (6) Stage III chronic kidney disease Current Visit: No Status: Chronic (7) Skin cancer Current Visit: Yes Status: Chronic Subjective Date of service: 01/03/17 Principal diagnosis: Right acute/subacute sky radiata CVA Interval history: Pt seen in room this AM, F/U IPR course, Right acute/subacute sky radiata CVA. No complaints on today Objective - Constitutional Vitals: Vital Signs - 12hr 01/03/17 01/03/17 01/03/17 08:00 09:37 09:39 Temperature 98 F Pulse Rate 68 68 Pulse Rate [ 56 L Left Brachial] Respiratory 18 Rate Blood Pressure 147/83 147/83 Blood Pressure 147/83 [Right Arm] O2 Sat by Pulse 100 Oximetry General appearance: Present: no acute distress, other (sitting up in WC) - EENT Eyes: EOM intact ENT: hearing intact - Neck Neck: supple, normal ROM - Respiratory Respiratory effort: normal Extremities: No edema - Musculoskeletal Musculoskeletal: left sided weakness - Neurologic Neurologic: CNII-XII intact - Psychiatric Psychiatric: appropriate mood/affect, intact judgment & insight, memory intact, cooperative - Labs CBC & Chem 7: 12/23/16 05:51 01/03/17 04:41 Labs: Abnormal lab results 01/03/17 Range/Units 04:41 Chloride 108.8 H (98-107) mmol/L Carbon Dioxide 20 L (22-30) mmol/L BUN 34 H (7-17) mg/dL Creatinine 2.0 H (0.7-1.2) mg/dL
[2017-01-03] MEDS: ZOCOR PO SCH (20:46)
[2017-01-03] MEDS: ATARAX PO SCH (20:46)
[2017-01-04 05:30] LABS: BUN/Creatinine Ratio 16.5; Calcium 9.5 mg/dL (8.4-10.2); Chloride 107.1 mmol/L (98-107); Potassium 4.4 mmol/L (3.6-5.0)
[2017-01-04] MEDS: COLACE PO SCH ×2 (08:18→22:41)
[2017-01-04] MEDS: ASPIRIN PO SCH (08:18)
[2017-01-04] MEDS: NORVASC PO SCH (08:22)
[2017-01-04] MEDS: CATAPRES PO SCH ×2 (08:27→22:41)
[2017-01-04] MEDS ORDERED: NORVASC PO SCH (08:40)
--- NOTE | 2017-01-04 08:43 | Progress Note ---
Assessment and Plan Impression: * Acute/subacute CVA w/ residual left side weakness * Stage III CKD - baseline SCr 1.8-2.0mg/dL * Hypertension * pyuria Plan: * Renal function stable today * Encouraged po hydration * cr now back to baseline * AM labs ordered * po abx for uti/pyuria x 3 dys * Continue antiHTN medications * Dose medications for renal function * Avoid potential nephrotoxins Subjective Date of service: 01/04/17 Principal diagnosis: Right acute/subacute sky radiata CVA Interval history: resting well in bed today Objective - Exam Narrative Exam: General appearance: well-developed, well-nourished EENT: ATNC Respiratory: Clear to Ascultation Heart: regular, S1S2 Gastrointestinal: Present: normal. Absent: tenderness, distended Integumentary: no rash Neurologic: alert and oriented x3 Musculoskeletal: Present: other (no edema) Psychiatric: mood/affect appropriate, cooperative - Vital Signs Vital signs: Vital Signs - 12hr 01/03/17 01/03/17 01/04/17 22:00 22:23 08:22 Pulse Rate 71 66 Pulse Rate [ 71 Left Brachial] Respiratory 18 Rate Blood Pressure 149/94 202/107 O2 Sat by Pulse 100 Oximetry 01/04/17 08:27 Pulse Rate 66 Pulse Rate [ Left Brachial] Respiratory Rate Blood Pressure 202/107 O2 Sat by Pulse Oximetry - Lab 12/23/16 05:51 01/04/17 04:56 Most recent lab results Calcium 9.5 mg/dL (8.4-10.2) 01/04/17 04:56
[2017-01-04] MEDS ORDERED: NORVASC PO ONE (09:00)
[2017-01-04] MEDS: HEPARIN SUB-Q SCH ×2 (10:00→22:44)
[2017-01-04] MEDS: DOXYCYCLINE 40 MG PO SCH (12:26)
--- NOTE | 2017-01-04 17:29 | Progress Note ---
Assessment and Plan 61 y.o. right handed female s/p Right acute/subacute sky radiata CVA, left hemiparesis, left foot drop, gait dysfunction - acute right CVA- ASA, statin - gait dysfunction secondary to CVA- progressed to CGA for gait; ambulated 6 feet in parallel bars on evaluation, now ambulating >300 feet - HTN- elevated this AM; norvasc increased - acute on chronic renal failure, stage 3- Nephrology following; stable - skin cancer- aware; actively undergoing chemo prior to admission; under the care of outpt dermatology; continue home ABX, daily doxycycline - DVT px- heparin - Patient Problems (1) Acute ischemic stroke Current Visit: No Status: Acute (2) Abnormality of gait following cerebrovascular accident (CVA) Current Visit: No Status: Acute (3) Hemiparesis affecting left side as late effect of cerebrovascular accident Current Visit: No Status: Acute (4) Left foot drop Current Visit: No Status: Acute (5) HTN (hypertension) Current Visit: No Status: Chronic Qualifiers: Hypertension type: H (6) Stage III chronic kidney disease Current Visit: No Status: Chronic (7) Skin cancer Current Visit: Yes Status: Chronic Subjective Date of service: 01/04/17 Principal diagnosis: Right acute/subacute sky radiata CVA Interval history: Pt seen in PT gym this AM, F/U IPR course, Right acute/subacute sky radiata CVA. Increased blood pressure this AM; hemisling in place at LUE, mild shoulder pain reported Objective - Constitutional Vitals: Vital Signs - 12hr 01/04/17 01/04/17 01/04/17 08:22 08:27 08:48 Temperature 98.8 F Pulse Rate 66 66 Pulse Rate [ 66 Right Brachial] Pulse Rate [ Right] Respiratory 20 Rate Blood Pressure 202/107 202/107 Blood Pressure 202/107 [Right Arm] O2 Sat by Pulse Oximetry 01/04/17 01/04/17 01/04/17 10:15 12:58 17:28 Temperature Pulse Rate 66 Pulse Rate [ Right Brachial] Pulse Rate [ 60 72 Right] Respiratory 18 16 Rate Blood Pressure 202/107 Blood Pressure 118/73 148/88 [Right Arm] O2 Sat by Pulse 100 100 Oximetry General appearance: Present: no acute distress, other (lying on mat) - EENT Eyes: EOM intact ENT: hearing intact - Neck Neck: supple, normal ROM - Respiratory Respiratory effort: normal Extremities: No edema - Musculoskeletal Musculoskeletal: left sided weakness - Neurologic Neurologic: CNII-XII intact - Psychiatric Psychiatric: appropriate mood/affect, intact judgment & insight, memory intact, cooperative - Allied health notes Allied health notes reviewed: PT (CGA for gait, supervision with transfers), OT (supervision for dressing) - Labs CBC & Chem 7: 12/23/16 05:51 01/04/17 04:56 Labs: Abnormal lab results 01/04/17 Range/Units 04:56 Chloride 107.1 H (98-107) mmol/L Carbon Dioxide 21 L (22-30) mmol/L BUN 33 H (7-17) mg/dL Creatinine 2.0 H (0.7-1.2) mg/dL
[2017-01-04] MEDS: ATARAX PO SCH (20:23)
[2017-01-04] MEDS: ZOCOR PO SCH (20:24)
[2017-01-05 06:41] LABS: BUN/Creatinine Ratio 18.88; Calcium 9.2 mg/dL (8.4-10.2); Potassium 4.5 mmol/L (3.6-5.0)
[2017-01-05] MEDS: NORVASC PO SCH (09:00)
[2017-01-05] MEDS: CATAPRES PO SCH ×2 (09:00→22:25)
[2017-01-05] MEDS: ASPIRIN PO SCH (09:00)
[2017-01-05] MEDS: COLACE PO SCH ×2 (09:00→22:25)
[2017-01-05] MEDS: HEPARIN SUB-Q SCH ×2 (09:05→22:41)
[2017-01-05] MEDS: [UNRECOGNIZED DRUG - OTHER] PO SCH (11:05)
[2017-01-05] MEDS: DOXYCYCLINE 40 MG PO SCH (11:06)
--- NOTE | 2017-01-05 14:07 | Progress Note ---
Assessment and Plan 61 y.o. right handed female s/p Right acute/subacute sky radiata CVA, left hemiparesis, left foot drop, gait dysfunction - acute right CVA- ASA, statin - gait dysfunction secondary to CVA- ongoing gait training - HTN- continue current regimen; follow closely; norvasc increased on yesterday - acute on chronic renal failure, stage 3- Nephrology following; stable; peak BUN/Cr, 56/2.5; now 34/1.8 - skin cancer- aware; actively undergoing chemo prior to admission; under the care of outpt dermatology; continue home ABX, daily doxycycline - DVT px- heparin - Patient Problems (1) Acute ischemic stroke Current Visit: No Status: Acute (2) Abnormality of gait following cerebrovascular accident (CVA) Current Visit: No Status: Acute (3) Hemiparesis affecting left side as late effect of cerebrovascular accident Current Visit: No Status: Acute (4) Left foot drop Current Visit: No Status: Acute (5) HTN (hypertension) Current Visit: No Status: Chronic Qualifiers: Hypertension type: H (6) Stage III chronic kidney disease Current Visit: No Status: Chronic (7) Skin cancer Current Visit: Yes Status: Chronic Subjective Date of service: 01/05/17 Principal diagnosis: Right acute/subacute sky radiata CVA Interval history: Pt seen in room this AM, F/U IPR course, Right acute/subacute sky radiata CVA. Pt reports feeling more comfortable with ambulation; no events overnight, BP improved from yesterday Objective - Constitutional Vitals: Vital Signs - 12hr 01/05/17 01/05/17 08:52 09:00 Temperature 97.7 F Pulse Rate 68 Pulse Rate [ 68 Left Brachial] Respiratory 18 Rate Blood Pressure 165/84 Blood Pressure 165/84 [Right Arm] General appearance: Present: no acute distress, other (in WC; utilizing lead mechanic independently) - EENT Eyes: EOM intact ENT: hearing intact - Neck Neck: supple, normal ROM - Respiratory Respiratory effort: normal Extremities: No edema - Musculoskeletal Musculoskeletal: left sided weakness - Neurologic Neurologic: CNII-XII intact, moves all extremities - Psychiatric Psychiatric: appropriate mood/affect, cooperative - Labs CBC & Chem 7: 12/23/16 05:51 01/05/17 04:17 Labs: Abnormal lab results 03/16/17 Range/Units 04:17 Chloride 109.0 H (98-107) mmol/L Carbon Dioxide 21 L (22-30) mmol/L BUN 34 H (7-17) mg/dL Creatinine 1.8 H (0.7-1.2) mg/dL
[2017-01-05] MEDS: ZOCOR PO SCH (22:24)
[2017-01-05] MEDS: ATARAX PO SCH (22:25)
[2017-01-06 06:51] LABS: BUN/Creatinine Ratio 21.05; Calcium 9.3 mg/dL (8.4-10.2); Chloride 107.3 mmol/L (98-107); Potassium 4.6 mmol/L (3.6-5.0)
[2017-01-06] MEDS: ASPIRIN PO SCH (08:51)
[2017-01-06] MEDS: COLACE PO SCH ×2 (08:51→22:43)
[2017-01-06] MEDS: NORVASC PO SCH (08:51)
[2017-01-06] MEDS: CATAPRES PO SCH ×2 (08:52→22:43)
[2017-01-06] MEDS: [UNRECOGNIZED DRUG - OTHER] PO SCH (10:34)
[2017-01-06] MEDS: HEPARIN SUB-Q SCH ×2 (10:41→22:45)
--- NOTE | 2017-01-06 16:37 | Progress Note ---
Assessment and Plan Impression: * Acute/subacute CVA w/ residual left side weakness * Stage III CKD - baseline SCr 1.8-2.0mg/dL * Hypertension * pyuria Plan: * Renal function stable today, cr 1.9 * Encouraged po hydration * cr now back to baseline * AM labs ordered * po abx for uti/pyuria x 3 dys--finished * Continue antiHTN medications * Dose medications for renal function * Avoid potential nephrotoxins Subjective Date of service: 01/06/17 Principal diagnosis: Right acute/subacute sky radiata CVA Interval history: resting well in bed today Objective - Exam Narrative Exam: General appearance: well-developed, well-nourished EENT: ATNC Respiratory: Clear to Ascultation Heart: regular, S1S2 Gastrointestinal: Present: normal. Absent: tenderness, distended Integumentary: no rash Neurologic: alert and oriented x3 Musculoskeletal: Present: other (no edema) Psychiatric: mood/affect appropriate, cooperative - Vital Signs Vital signs: Vital Signs - 12hr 01/06/17 01/06/17 01/06/17 08:04 08:51 08:52 Temperature 97.2 F L Pulse Rate 80 80 Pulse Rate [ 80 Right Brachial] Respiratory 18 Rate Blood Pressure 135/88 135/88 Blood Pressure 135/89 [Right Arm] O2 Sat by Pulse 100 Oximetry - Lab 12/23/16 05:51 01/06/17 05:51 Most recent lab results Calcium 9.3 mg/dL (8.4-10.2) 01/06/17 05:51
--- NOTE | 2017-01-06 16:57 | Progress Note ---
Assessment and Plan 61 y.o. right handed female s/p Right acute/subacute sky radiata CVA, left hemiparesis, left foot drop, gait dysfunction - acute right CVA- ASA, statin - gait dysfunction secondary to CVA- increased gait distance since admission; ongoing gait training - HTN- improved on today; continue to follow - acute on chronic renal failure, stage 3- Nephrology following - skin cancer- aware; daily doxycycline (home med) - DVT px- heparin - Patient Problems (1) Acute ischemic stroke Current Visit: No Status: Acute (2) Abnormality of gait following cerebrovascular accident (CVA) Current Visit: No Status: Acute (3) Hemiparesis affecting left side as late effect of cerebrovascular accident Current Visit: No Status: Acute (4) Left foot drop Current Visit: No Status: Acute (5) HTN (hypertension) Current Visit: No Status: Chronic Qualifiers: Hypertension type: H (6) Stage III chronic kidney disease Current Visit: No Status: Chronic (7) Skin cancer Current Visit: Yes Status: Chronic Subjective Date of service: 01/06/17 Principal diagnosis: Right acute/subacute sky radiata CVA Interval history: Pt seen in room this afternoon, F/U IPR course, Right acute/subacute sky radiata CVA. tolerating lunch without any s/s aspiration; c/o mild low back pain this AM Objective - Constitutional Vitals: Vital Signs - 12hr 01/06/17 01/06/17 01/06/17 08:04 08:51 08:52 Temperature 97.2 F L Pulse Rate 80 80 Pulse Rate [ 80 Right Brachial] Respiratory 18 Rate Blood Pressure 135/88 135/88 Blood Pressure 135/89 [Right Arm] O2 Sat by Pulse 100 Oximetry General appearance: Present: no acute distress - EENT Eyes: EOM intact ENT: hearing intact, clear oral mucosa - Neck Neck: supple, normal ROM - Respiratory Respiratory effort: normal Extremities: No edema - Musculoskeletal Musculoskeletal: left sided weakness - Neurologic Neurologic: CNII-XII intact - Psychiatric Psychiatric: appropriate mood/affect, intact judgment & insight, memory intact, cooperative - Allied health notes Allied health notes reviewed: PT (Alivia for bed mobility and wheelchair mobility ; supervision for transfers; Cindy for gait; CGA for stairs) - Labs CBC & Chem 7: 12/23/16 05:51 01/06/17 05:51 Labs: Abnormal lab results 01/06/17 Range/Units 05:51 Chloride 107.3 H (98-107) mmol/L BUN 40 H (7-17) mg/dL Creatinine 1.9 H (0.7-1.2) mg/dL
[2017-01-06] MEDS: ZOCOR PO SCH (22:43)
[2017-01-06] MEDS: ATARAX PO SCH (22:45)
[2017-01-07 05:38] LABS: BUN/Creatinine Ratio 23.33; Calcium 9.3 mg/dL (8.4-10.2); Chloride 107.9 mmol/L (98-107); Potassium 4.5 mmol/L (3.6-5.0)
[2017-01-07] MEDS: [UNRECOGNIZED DRUG - OTHER] PO SCH (09:21)
[2017-01-07] MEDS: CATAPRES PO SCH ×2 (09:21→22:16)
[2017-01-07] MEDS: ASPIRIN PO SCH (09:22)
[2017-01-07] MEDS: COLACE PO SCH ×2 (09:22→22:15)
[2017-01-07] MEDS: NORVASC PO SCH (09:22)
[2017-01-07] MEDS: HEPARIN SUB-Q SCH ×2 (09:23→22:19)
--- NOTE | 2017-01-07 14:53 | Progress Note ---
Assessment and Plan Impression: * Acute/subacute CVA w/ residual left side weakness * Stage III CKD - baseline SCr 1.8-2.0mg/dL * Hypertension * pyuria Plan: * Renal function stable * Encouraged po hydration * cr seems to be back to baseline * Continue antiHTN medications. Blood pressure is under control * Dose medications for renal function * Avoid potential nephrotoxins Subjective Date of service: 01/07/17 Principal diagnosis: Right acute/subacute sky radiata CVA Interval history: Patient is comfortable. Denies any shortness of breath. No nausea or vomiting Objective - Vital Signs Vital signs: Vital Signs - 12hr 01/07/17 01/07/17 01/07/17 08:00 09:21 09:22 Temperature 98.3 F Pulse Rate 71 71 Pulse Rate [ 71 Left Brachial] Respiratory 18 Rate Blood Pressure 137/80 137/80 Blood Pressure 137/80 [Right Arm] O2 Sat by Pulse 99 Oximetry - General Appearance General appearance: well-developed, well-nourished, appears stated age EENT: PERRL, mucous membranes moist Neck: no JVD, no thyromegaly, no carotid bruit, supple Respiratory: Present: Clear to Ascultation Cardiology: regular, normal heart rate, S1S2, no murmurs Gastrointestinal: normal, normoactive bowel sounds Integumentary: other (no edema) - Lab 12/23/16 05:51 01/07/17 04:44 Most recent lab results Calcium 9.3 mg/dL (8.4-10.2) 01/07/17 04:44
[2017-01-07] MEDS: ATARAX PO SCH (22:15)
[2017-01-07] MEDS: ZOCOR PO SCH (22:15)
[2017-01-08] MEDS: NORVASC PO SCH (08:46)
[2017-01-08] MEDS: COLACE PO SCH ×2 (08:47→23:49)
[2017-01-08] MEDS: ASPIRIN PO SCH (08:47)
[2017-01-08] MEDS: CATAPRES PO SCH ×2 (08:47→23:46)
[2017-01-08] MEDS: HEPARIN SUB-Q SCH ×3 (08:48→23:50)
[2017-01-08] MEDS: [UNRECOGNIZED DRUG - OTHER] PO SCH (08:59)
[2017-01-08] MEDS: ATARAX PO SCH (23:47)
[2017-01-08] MEDS: ZOCOR PO SCH (23:48)
[2017-01-09 05:23] LABS: Hematocrit 30.5 % (30.3-42.9); Hemoglobin 9.8 gm/dl (10.1-14.3); Mean Corpuscular HGB Conc 32 % (30-34); Mean Corpuscular Volume 81 fl (79-97); Platelet Count 318 K/mm3 (140-440); Red Blood Count 3.79 M/mm3 (3.65-5.03); Red Cell Distribution Width 14.8 % (13.2-15.2); White Blood Count 5.4 K/mm3 (4.5-11.0)
[2017-01-09 05:25] LABS: Mean Corpuscular Hemoglobin 26 pg (28-32)
[2017-01-09 05:37] LABS: BUN/Creatinine Ratio 21.9; Calcium 9.1 mg/dL (8.4-10.2); Chloride 107.6 mmol/L (98-107); Potassium 4.8 mmol/L (3.6-5.0)
[2017-01-09] MEDS: CATAPRES PO SCH ×2 (08:41→22:02)
[2017-01-09] MEDS: NORVASC PO SCH (08:42)
[2017-01-09] MEDS: ASPIRIN PO SCH (08:42)
[2017-01-09] MEDS: COLACE PO SCH ×2 (08:42→22:03)
--- NOTE | 2017-01-09 10:44 | Progress Note ---
Assessment and Plan Impression: * Acute/subacute CVA w/ residual left side weakness * Stage III CKD - baseline SCr 1.8-2.0mg/dL * Hypertension * pyuria Plan: * Renal function stable * Encouraged po hydration * cr seems to be back to baseline * Continue antiHTN medications. Blood pressure is under control * Dose medications for renal function * Avoid potential nephrotoxins Subjective Date of service: 01/09/17 Principal diagnosis: Right acute/subacute sky radiata CVA Interval history: Patient is comfortable. Denies any shortness of breath. No nausea or vomiting. No complaints offered Objective - Vital Signs Vital signs: Vital Signs - 12hr 01/09/17 01/09/17 01/09/17 08:00 08:41 08:42 Temperature 97.2 F L Pulse Rate 72 72 Pulse Rate [ 72 Left Brachial] Respiratory 20 Rate Blood Pressure 169/85 169/85 Blood Pressure 169/85 [Right Arm] O2 Sat by Pulse 100 Oximetry - General Appearance General appearance: well-developed, well-nourished, appears stated age EENT: PERRL, mucous membranes moist Neck: no JVD, no thyromegaly, no carotid bruit, supple Respiratory: Present: Clear to Ascultation Cardiology: regular, normal heart rate Gastrointestinal: normal, normoactive bowel sounds Integumentary: other (no edema) - Lab 01/09/17 04:45 01/09/17 04:45 Most recent lab results Calcium 9.1 mg/dL (8.4-10.2) 01/09/17 04:45
[2017-01-09] MEDS: HEPARIN SUB-Q SCH ×2 (11:31→22:00)
[2017-01-09] MEDS: [UNRECOGNIZED DRUG - OTHER] PO SCH (11:39)
--- NOTE | 2017-01-09 16:23 | Progress Note ---
Assessment and Plan 61 y.o. right handed female s/p Right acute/subacute sky radiata CVA, left hemiparesis, left foot drop, gait dysfunction - acute right CVA- ASA, statin - gait dysfunction secondary to CVA- much improved gait; now CGA up to 200 feet - HTN- stable on current regimen; pt/family educated on need to obtain blood pressure cuff and log readings for outpt F/U with PCP after discharge - acute on chronic renal failure, stage 3- Nephrology following; labs stable - skin cancer- aware; daily doxycycline (home med) - DVT px- heparin - Patient Problems (1) Acute ischemic stroke Current Visit: No Status: Acute (2) Abnormality of gait following cerebrovascular accident (CVA) Current Visit: No Status: Acute (3) Hemiparesis affecting left side as late effect of cerebrovascular accident Current Visit: No Status: Acute (4) Left foot drop Current Visit: No Status: Acute (5) HTN (hypertension) Current Visit: No Status: Chronic Qualifiers: Hypertension type: H (6) Stage III chronic kidney disease Current Visit: No Status: Chronic (7) Skin cancer Current Visit: Yes Status: Chronic Subjective Date of service: 01/09/17 Principal diagnosis: Right acute/subacute sky radiata CVA Interval history: Pt seen in gym on this AM, F/U IPR course, Right acute/subacute sky radiata CVA. Family training completed with and daughter this AM; all questions answered; no events noted over weekend Objective - Constitutional Vitals: Vital Signs - 12hr 01/09/17 01/09/17 01/09/17 08:00 08:41 08:42 Temperature 97.2 F L Pulse Rate 72 72 Pulse Rate [ 72 Left Brachial] Respiratory 20 Rate Blood Pressure 169/85 169/85 Blood Pressure 169/85 [Right Arm] O2 Sat by Pulse 100 Oximetry General appearance: Present: no acute distress, other (lying on mat) - EENT Eyes: EOM intact ENT: hearing intact - Neck Neck: supple, normal ROM - Respiratory Respiratory effort: normal Extremities: No edema - Musculoskeletal Musculoskeletal: left sided weakness - Neurologic Neurologic: CNII-XII intact - Psychiatric Psychiatric: appropriate mood/affect, intact judgment & insight, memory intact, cooperative - Allied health notes Allied health notes reviewed: PT (CGA for transfers and gait, up to 200 feet) - Labs CBC & Chem 7: 01/09/17 04:45 01/09/17 04:45 Labs: Abnormal lab results 01/09/17 01/09/17 Range/Units 04:45 04:45 Hgb 9.8 L (10.1-14.3) gm/dl MCH 26 L (28-32) pg Chloride 107.6 H (98-107) mmol/L BUN 46 H (7-17) mg/dL Creatinine 2.1 H (0.7-1.2) mg/dL
[2017-01-09] MEDS: ATARAX PO SCH (21:59)
[2017-01-09] MEDS: ZOCOR PO SCH (22:00)
[2017-01-10] MEDS: ASPIRIN PO SCH (09:33)
[2017-01-10] MEDS: COLACE PO SCH ×2 (09:33→22:03)
[2017-01-10] MEDS: NORVASC PO SCH (09:34)
[2017-01-10] MEDS: CATAPRES PO SCH ×2 (09:34→22:03)
[2017-01-10] MEDS: HEPARIN SUB-Q SCH ×2 (09:35→22:03)
[2017-01-10] MEDS: [UNRECOGNIZED DRUG - OTHER] PO SCH (10:00)
--- NOTE | 2017-01-10 15:57 | Progress Note ---
Assessment and Plan 61 y.o. right handed female s/p Right acute/subacute sky radiata CVA, left hemiparesis, left foot drop, gait dysfunction - acute right CVA- ASA, statin - gait dysfunction secondary to CVA- CGA for gait - HTN- stable - acute on chronic renal failure, stage 3- stable; outpt F/U with Dr. Rodriguez - skin cancer- aware; daily doxycycline (home med); resume outpt F/U with Dermatology after d/c - DVT px- heparin - team conference held on today- length of stay extended at last team conference on 01/03; since that time, pt has progressed to Alivia for bathing, grooming, UB dressing, toileting, bed mobility, and wheelchair mobility; S/U for LB dressing; SBA for toilet/shower transfers; increased gait distance to 200 feet CGA; remains CGA for stairs; CGA for car transfers. Pt is scheduled for d/c home on tomorrow. - Patient Problems (1) Acute ischemic stroke Current Visit: No Status: Acute (2) Abnormality of gait following cerebrovascular accident (CVA) Current Visit: No Status: Acute (3) Hemiparesis affecting left side as late effect of cerebrovascular accident Current Visit: No Status: Acute (4) Left foot drop Current Visit: No Status: Acute (5) HTN (hypertension) Current Visit: No Status: Chronic Qualifiers: Hypertension type: H (6) Stage III chronic kidney disease Current Visit: No Status: Chronic (7) Skin cancer Current Visit: Yes Status: Chronic Subjective Date of service: 01/10/17 Principal diagnosis: Right acute/subacute sky radiata CVA Interval history: Pt seen in room this afternoon, F/U IPR course, Right acute/subacute sky radiata CVA. no new complaints; excited about upcoming discharge on tomorrow Objective - Constitutional Vitals: Vital Signs - 12hr 01/10/17 01/10/17 08:01 09:34 Temperature 98.2 F Pulse Rate 56 L Pulse Rate [ 56 L Left Brachial] Respiratory 18 Rate Blood Pressure 127/72 Blood Pressure 127/72 [Left Arm] O2 Sat by Pulse 99 Oximetry General appearance: Present: no acute distress - EENT Eyes: EOM intact ENT: hearing intact - Neck Neck: supple, normal ROM - Respiratory Respiratory effort: normal Extremities: No edema - Musculoskeletal Musculoskeletal: left sided weakness - Neurologic Neurologic: CNII-XII intact - Psychiatric Psychiatric: appropriate mood/affect, intact judgment & insight, memory intact, cooperative - Labs CBC & Chem 7: 01/09/17 04:45 01/09/17 04:45
[2017-01-10] MEDS: ZOCOR PO SCH (22:02)
[2017-01-10] MEDS: ATARAX PO SCH (22:02)
[2017-01-11 08:42] VITALS: BP 128/78
--- NOTE | 2017-01-11 09:01 | Progress Note ---
Assessment and Plan Impression: * Acute/subacute CVA w/ residual left side weakness * Stage III CKD - baseline SCr 1.8-2.0mg/dL * Hypertension * pyuria Plan: * Renal function stable . Shall recheck her chemistries in the morning * Encouraged po hydration * cr seems to be back to baseline * Dose medications for renal function * Avoid potential nephrotoxins * Her blood pressure is 128/70 this morning. Patient seems to be symptomatic with that. Shall reduce the dosage of clonidine Subjective Date of service: 01/11/17 Principal diagnosis: Right acute/subacute sky radiata CVA Interval history: Patient states that her blood pressure was low this morning. Denies any shortness of breath. No nausea or vomiting Objective - Vital Signs Vital signs: Vital Signs - 12hr 01/10/17 01/10/17 01/11/17 22:00 22:03 08:20 Temperature 97.7 F Pulse Rate 68 Pulse Rate [ 69 Left Brachial] Respiratory 18 Rate Respiratory 18 Rate [Back] Blood Pressure 143/77 Blood Pressure 128/78 [Right Arm] O2 Sat by Pulse 100 100 Oximetry - General Appearance General appearance: well-developed, well-nourished, appears stated age EENT: PERRL, mucous membranes moist Neck: no JVD, no thyromegaly, no carotid bruit, supple Respiratory: Present: Clear to Ascultation Cardiology: regular, normal heart rate Gastrointestinal: normal, normoactive bowel sounds Integumentary: rash (generalized skin lesions noted) - Lab 01/09/17 04:45 01/09/17 04:45 Most recent lab results Calcium 9.1 mg/dL (8.4-10.2) 01/09/17 04:45
--- NOTE | 2017-01-11 09:47 | Discharge Summary ---
Providers - Providers Date of Admission: 12/22/16 21:33 Date of discharge: 01/11/17 Attending physician: LESVIA RICE 12/22/16 21:43 Occupational Therapy Evaluate and Treat [CONS] Routine Comment: Reason For Exam: s/p cva Physical Therapy Evaluation and Treat [CONS] Routine Comment: Reason For Exam: s/p cva Speech Therapy Evaluation and Treat [CONS] Routine Reason For Exam: s/p cva 12/29/16 13:05 Consult to Physician [CONS] Routine Consulting Provider: BENITA RAY Reason For Exam: acute on chronic renal failure Place consult to:: [facility] nephrology Notified:: Karol Phone number called:: [phone] Was contact made?: Yes If yes, spoke with:: Karol Time called:: 14:49 Primary care physician: Dr. Jacqueline Miranda Hospitalization Reason for admission: Right CVA with left hemiparesis Condition: Stable Hospital course: 61 y.o. right handed female admitted to [facility] after complaints of feeling "out of it" while at home; later began with left sided weakness and left foot drop. MRI Brain identified acute/subacute ischemia at right sky radiata. Pt continued with left sided weakness; uncontrolled hypertension with SBP range from 141-214. Pt was found to have significant decline from baseline after therapy evaluations were completed; admitted to IRU for aggressive therapies and ongoing medical management. IRU course significant for initially uncontrolled blood pressure requiring medical adjustments; acute on chronic renal failure, requiring Nephrology consult. Functionally, pt showed good progress during course. On admission, pt required modA for bed mobility, sit/ stand transfers, shower/toilet transfers, toileting, UB dressing, bathing; maxA for LB dressing and gait, ambulating 6 feet in parallel bars; supervision for feeding and grooming. At the time of discharge, pt has progressed to supervision-CGA for bed mobility, Cindy/CGA for stairs and gait, ambulating 340 feet with HW and AFO; Alivia for wheelchair mobility, grooming, bathing, UB dressing, toileting; SBA for feeding, LB dressing, toilet/shower transfers. Family training was completed with and daughter prior to discharge. Pt is stable for d/c home. >30 mins spent on d/c process, medication reconciliation, pt education- CVA and HTN management (to check BP prior to taking BP medications) Disposition: DISCHARGED TO HOME OR SELFCARE - Discharge Diagnoses (1) Acute ischemic stroke Status: Acute (2) Abnormality of gait following cerebrovascular accident (CVA) Status: Acute (3) Hemiparesis affecting left side as late effect of cerebrovascular accident Status: Acute (4) Left foot drop Status: Acute (5) HTN (hypertension) Status: Chronic Qualifiers: Hypertension type: H (6) Stage III chronic kidney disease Status: Chronic (7) Skin cancer Status: Chronic Core Measure Documentation - Palliative Care Palliative Care/ Comfort Measures: Not Applicable - Core Measures Any of the following diagnoses?: stroke - Stroke Discharge Requirements Statin for LDL = or >70 mg/dl on DC: Yes Anticoag for atrial fib/atrial flutter: Not Applicable Antithrombotic for ischemic stroke: Yes Exam - Constitutional Vitals: Temp Pulse Resp BP Pulse Ox 97.7 F 69 18 128/78 100 01/11/17 08:20 01/11/17 08:20 01/11/17 08:20 01/11/17 08:20 01/11/17 08:20 General appearance: Present: no acute distress - EENT Eyes: Present: EOM intact ENT: hearing intact - Neck Neck: Present: supple, normal ROM - Respiratory Respiratory effort: normal - Extremities Extremities: No edema - Abdominal General gastrointestinal: Present: soft, non-tender, non-distended - Musculoskeletal Musculoskeletal: left sided weakness - Psychiatric Psychiatric: appropriate mood/affect, intact judgment & insight, memory intact, cooperative - Neurologic Neurologic: CNII-XII intact Plan Activity: no driving until cleared by PCP, fall precautions Weight Bearing Status: Full Weight Bearing Diet: low cholesterol, low salt Special Instructions: physical therapy, occupational therapy, other (outpatient therapies at [facility]) Durable Medical Equipment Needed Upon Discharge: Wheelchair, Bedside Commode, Bedside commode -elevated, other (tub bench; hemiwalker; [facility]) Follow up with: JACQUELINE MIRANDA MD [Referring] - 7 Days LENCHO REYES MD [Referring] - 7 Days BENITA RAY MD [Staff Physician] - 7 Days Prescriptions: hydrOXYzine 10 mg PO QHS #30 QUEtiapine 100 mg PO QHS #30 Simvastatin [Zocor TAB] 20 mg PO QHS #30 tablet amLODIPine [Norvasc] 10 mg PO QDAY #30 tablet Aspirin EC [Aspirin Enteric Coated TAB] 325 mg PO QDAY #30 tablet. cloNIDine [Catapres] 0.2 mg PO BID #60 tablet
[2017-01-11] MEDS: NORVASC PO SCH (09:48)
[2017-01-11] MEDS: ASPIRIN PO SCH (09:48)
[2017-01-11] MEDS: HEPARIN SUB-Q SCH (09:48)
[2017-01-11] MEDS: COLACE PO SCH (09:48)
[2017-01-11] MEDS: [UNRECOGNIZED DRUG - OTHER] PO SCH (09:50)
[2017-01-11] MEDS: CATAPRES PO SCH (09:51)
[2017-01-11] MEDS ORDERED: CATAPRES PO SCH (10:00)
== END 2017-01-11 15:00 | disposition home or self-care (01) | DRG 65 ==
LOC: 3B 21:33
PROVIDERS: ADMIT Family Medicine; ATTEND Family Medicine
DX: I63.9 Cerebral infarction, unspecified (principal); G81.94 Hemiplegia, unspecified affecting left nondominant side; N17.9 Acute kidney failure, unspecified; N39.0 Urinary tract infection, site not specified; M21.372 Foot drop, left foot; C44.90 Unspecified malignant neoplasm of skin, unspecified; I12.9 Hypertensive chronic kidney disease with stage 1 through stage 4 chronic kidney disease, or unspecified chronic kidney disease; N18.3 Chronic kidney disease, stage 3 (moderate); R26.9 Unspecified abnormalities of gait and mobility; K59.00 Constipation, unspecified; Z82.49 Family history of ischemic heart disease and other diseases of the circulatory system; Z83.3 Family history of diabetes mellitus; Z82.3 Family history of stroke; Z98.891 History of uterine scar from previous surgery; Z88.0 Allergy status to penicillin; Z88.2 Allergy status to sulfonamides; Z88.8 Allergy status to other drugs, medicaments and biological substances
CPT/HCPCS: 36415; 80048; 80053; 81001; 85025; 85027; J1644; J1650

== ENCOUNTER 2017-11-15 09:06 | Outpatient (CLI) | payer BC ==
--- NOTE | 2017-11-16 08:07 | Cat Scan Report ---
CT NECK WITH CONTRAST: HISTORY: Mycosis fungoides involving lymph nodes. COMPARISON: None at this facility. TECHNIQUE: Helical CT following IV contrast. Sagittal and coronal reformatted images. FINDINGS: No lymphadenopathy is appreciated in the cervical region. There are a few scattered jugular and submental lymph nodes which are normal size and density. The largest lymph node measures 8.1 mm in the left jugular chain. No pathologic adenopathy is identified. The salivary glands are symmetric and normal attenuation. No mass or inflammation. Soft tissue structures of the upper aerodigestive tract are within normal limits. The visualized carotid and vertebral arterial systems are patent with no significant stenosis or atherosclerotic disease. The thyroid is normal size and contour. A 5 mm hypodense nodule is identified at the superior pole of the right thyroid lobe. This has a benign appearance. The bony structures are intact. No suspicious bony lesion. The visualized sinuses and mastoid air cells are well-aerated. IMPRESSION: Unremarkable CT neck. No evidence for suspicious mass or lymphadenopathy.
--- NOTE | 2017-11-16 08:14 | Cat Scan Report ---
CT CHEST WITH CONTRAST: HISTORY: Mycosis fungoides involving lymph nodes. COMPARISON: 08/03/16. TECHNIQUE: Helical CT in 1.25mm intervals following IV contrast. Sagittal and coronal reformatted images. FINDINGS: There are a few new mildly enlarged lymph nodes in both axillary chains since 08/03/16. The largest new lymph node in the right axillary chain measures 1.8 x 1.5 cm on image 250, series 2. The largest lymph node in the left axillary chain measures 1.7 x 1.3 cm on image 318, series 2. Tracheobronchial tree: Normal. Esophagus: Normal. Heart: Normal. Pericardium: Small fluid in the superior pericardial recess is noted which is likely physiologic. No pericardial nodularity. Mediastinum: Normal. No mediastinal adenopathy is detected. Lung [place]: Normal. Pleural Spaces: Normal. Musculoskeletal: Normal. IMPRESSION: There are new, mildly enlarged and slightly suspicious bilateral axillary lymph nodes since 08/03/16 exam. Please see above.
--- NOTE | 2017-11-16 08:36 | Cat Scan Report ---
CT ABDOMEN PELVIS WITH CONTRAST: HISTORY: Mycosis fungoides involving lymph nodes. COMPARISON: 10 since 10/07. TECHNIQUE: Helical CT in 1.25mm intervals following IV contrast. Sagittal and coronal reconstructions. FINDINGS: Lung bases: Normal. Liver: Normal. Biliary system: Normal. Pancreas: Normal. Spleen: Normal. Kidneys/ureters/bladder: There are scattered simple appearing cysts throughout both kidneys. The largest cyst measures 2 cm at the inferior pole of the left kidney. No obstructive uropathy. The ureters and bladder are within normal limits. Adrenal glands: Normal. Aorta: Normal. Intestines: Within normal limits. Colitis has resolved since the previous exam. Appendix: Not confidently identified, correlate with surgical history. Pelvic viscera: Normal. Ascites: None. Adenopathy: A left inguinal lymph node has increased from 1.6 x 0.7 cm and now measures 2.6 x 0.9 cm. There are a few additional bilateral inguinal lymph nodes measuring up to 1 cm which are unchanged. No intra-abdominal adenopathy is identified. Musculoskeletal: No suspicious bony lesion has developed. Mild osteopenia. IMPRESSION: There is a solitary mildly enlarged left inguinal lymph node as outlined above. No intra-abdominal adenopathy is detected. None visceral mass is identified. Bilateral renal cysts, stable. Colitis has resolved since 08/03/16 exam.
== END 2017-11-15 09:07 | disposition home or self-care (01) ==
LOC: CT 09:06
PROVIDERS: ATTEND Internal Medicine Hematology & Oncology
DX: C84.08 Mycosis fungoides, lymph nodes of multiple sites (principal); I12.9 Hypertensive chronic kidney disease with stage 1 through stage 4 chronic kidney disease, or unspecified chronic kidney disease; N18.4 Chronic kidney disease, stage 4 (severe); N28.1 Cyst of kidney, acquired; M85.80 Other specified disorders of bone density and structure, unspecified site; R59.9 Enlarged lymph nodes, unspecified; E04.1 Nontoxic single thyroid nodule; Z79.899 Other long term (current) drug therapy
CPT/HCPCS: 36415; 70491; 71260; 74177; 82565; 84520; Q9967

== ENCOUNTER 2018-02-01 11:05 | Outpatient (CLI) | payer BC ==
--- NOTE | 2018-02-07 08:59 | PET Report ---
PET/CT:02/01/18 11:05:00 CLINICAL: Mycosis fungoides. RADIOPHARMACEUTICAL: 10.87mCi F18-FDG. COMPARISON: 11/15/17 CT CAP TECHNIQUE- Following intravenous injection of F-18 FDG and an approximately 60 minute uptake period, CT and PET images from the mid skull to the upper thighs were acquired with the patient in the fasted state. No contrast was administered. The CT protocol used for this PET CT study is designed for attenuation correction and anatomic localization of PET abnormalities. This engraver machine CT is not desired to produce and cannot replace, icfjp-zv-wfu-art diagnostic CT scans with specific imaging protocols for different body parts and indications. Plasma glucose at the time of this test: 67g/dl. The standardized uptake values (SUV) are normalized to patient body weight and indicate the highest activity concentration (SUV max) in a given disease site. FINDINGS: Brain--Physiologic FDG uptake in the visualized regions of the brain. Neck--Physiologic FDG uptake in mucosal structures. No lymphadenopathy. However, a 5 mm FDG avid skin nodule at the base of the left ear with SUV 5.3 and diffuse FDG uptake in the helix of the left ear with SUV 5.5 and no identifiable skin nodule. Chest--Physiologic FDG uptake in mediastinal blood pool and myocardium. An FDG avid 1.7 x 0.8 cm skin nodule with SUV 18.2 at the level of the left first sternocostal junction. Lungs--No abnormal uptake. No pulmonary nodule or mass. Pleura/pericardium--No abnormal uptake. Thoracic nodes--bilateral axillary lymph nodes have decreased in size since the CT and demonstrate minimal FDG uptake. The largest on the right measures 1.6 x 0.8 cm with SUV 2.9 compared to a measurement of 1.9 x 1.5 cm on the last exam. An inferior left axillary lymph node measures 1.3 x 0.9 cm with SUV 1.5 compared to a measurement of 1.4 x 0.6 cm on the last exam. No other abnormal lymph nodes. Hepatobiliary--No abnormal uptake. Liver background SUV mean, as a reference for comparing FDG studies, is 3.1 . No liver mass. Spleen--No abnormal uptake and normal splenic size. Pancreas--No abnormal uptake. Adrenal Glands--No abnormal uptake. Kidneys/Ureters/Bladder--No abnormal uptake. Abdominopelvic Nodes--No abnormal uptake. Bowel/Peritoneum/Mesentery--No abnormal uptake. Pelvic organs--No abnormal uptake. Bones/Soft Tissues--No abnormal uptake. Other findings: A plaque-like FDG avid skin lesion of the right posterior upper arm measures 3.2 x 0.7 cm with SUV 6.0. IMPRESSION- 1. Decreased size of bilateral axillary lymph nodes since the previous CT. 2. However, a new markedly FDG avid 1.7 cm skin nodule of the left anterior chest wall and additional skin lesions involving the left ear and the right posterior upper arm. 3. No evidence of visceral disease.
== END 2018-02-01 11:06 | disposition home or self-care (01) ==
LOC: PET 11:05
PROVIDERS: ATTEND Internal Medicine Hematology & Oncology
DX: C84.08 Mycosis fungoides, lymph nodes of multiple sites (principal); L98.8 Other specified disorders of the skin and subcutaneous tissue; I12.9 Hypertensive chronic kidney disease with stage 1 through stage 4 chronic kidney disease, or unspecified chronic kidney disease; N18.4 Chronic kidney disease, stage 4 (severe); Z79.899 Other long term (current) drug therapy
CPT/HCPCS: 78815; 82962; A9552

== ENCOUNTER 2018-06-30 16:42 | Emergency (ER) | payer BC ==
[2018-06-30 17:32] LABS: Hematocrit 38.9 % (30.3-42.9); Hemoglobin 12.6 gm/dl (10.1-14.3); Mean Corpuscular HGB Conc 32 % (30-34); Mean Corpuscular Hemoglobin 27 pg (28-32); Mean Corpuscular Volume 85 fl (79-97); Platelet Count 121 K/mm3 (140-440); Red Cell Distribution Width 16.9 % (13.2-15.2)
[2018-06-30 17:38] LABS: Alanine Aminotransferase 11 units/L (7-56); Albumin 3.9 g/dL (3.9-5); BUN/Creatinine Ratio 15; Blood Urea Nitrogen 22 mg/dL (7-17); Calcium 9.3 mg/dL (8.4-10.2); Hemolysis Index 8
[2018-06-30 18:35] LABS: Band Neutrophils # (Manual) 0.1 K/mm3; Basophils % (Manual) 0 % (0.0-1.8); Eosinophils % (Manual) 0 % (0.0-4.3); Total Cells Counted 100
[2018-06-30 18:46] LABS: Platelet Estimate Consistent w Auto
[2018-06-30] MEDS ORDERED: NACL 0.9% 1000 ML 1,000 ML IV ONE (18:47)
[2018-06-30] MEDS ORDERED: ZOFRAN IV ONE (18:47)
[2018-06-30] MEDS ORDERED: LOPRESSOR IV ONE (18:47)
--- NOTE | 2018-06-30 18:54 | Emergency Department Report ---
ED General Adult HPI - General Chief complaint: Nausea/Vomiting/Diarrhea Stated complaint: SWEATING/HEART RACING/DEHYDRATED Time Seen by Provider: 06/30/18 18:41 Source: patient Mode of arrival: Ambulatory Limitations: No Limitations - History of Present Illness Initial comments: Ms. Oseguera is 62 years old female with history of lung cancer recently finished chemotherapy. Patient presented to the ER complaining of abdominal pain and diarrhea for the last 2 days. Patient stated that she also nauseated. She denied any fever, shortness of breath, chest pain or cough. Patient stated that she was told that she finished her chemotherapy and they planning to do a PET scan in the next week. - Related Data Home Medications Medication Instructions Recorded Confirmed Last Taken Doxycycline 40 mg PO DAILY 12/19/16 12/25/16 Unknown Previous Rx's Medication Instructions Recorded Last Taken Type Loperamide [Imodium] 4 mg PO BID PRN #20 capsule 01/08/16 Unknown Rx Aspirin EC [Aspirin Enteric Coated 325 mg PO QDAY #30 tablet.dr 01/11/17 Unknown Rx TAB] QUEtiapine 100 mg PO QHS #30 01/11/17 Unknown Rx Simvastatin [Zocor TAB] 20 mg PO QHS #30 tablet 01/11/17 Unknown Rx amLODIPine [Norvasc] 10 mg PO QDAY #30 tablet 01/11/17 Unknown Rx cloNIDine [Catapres] 0.2 mg PO BID #60 tablet 01/11/17 Unknown Rx hydrOXYzine 10 mg PO QHS #30 01/11/17 Unknown Rx Allergies Allergy/AdvReac Type Severity Reaction Status Date / Time erythromycin base Allergy Swelling Verified 06/30/18 16:52 hydrocodone Allergy Swelling Verified 06/30/18 16:52 Penicillins Allergy Swelling Verified 06/30/18 16:52 Sulfa (Sulfonamide AdvReac DISCOLORATI Verified 06/30/18 16:52 Antibiotics) ON ED Review of Systems ROS: Stated complaint: SWEATING/HEART RACING/DEHYDRATED Other details as noted in HPI Comment: All other systems reviewed and negative Constitutional: denies: chills, fever Respiratory: denies: cough, orthopnea, shortness of breath, SOB with exertion, SOB at rest, wheezing Cardiovascular: denies: chest pain, palpitations, dyspnea on exertion Gastrointestinal: abdominal pain, nausea, diarrhea. denies: vomiting, constipation, hematemesis, hematochezia Genitourinary: denies: urgency Neurological: denies: headache, weakness, numbness, paresthesias, confusion, abnormal gait ED Past Medical Hx - Past Medical History Hx Hypertension: Yes Hx CVA: Yes Hx Heart Attack/AMI: No Hx Congestive Heart Failure: No Hx Diabetes: No Hx Deep Vein Thrombosis: No Hx GERD: Yes Hx Renal Disease: Yes Hx of Cancer: Yes (SKIN) Hx Sickle Cell Disease: No Hx Arthritis: Yes Hx Seizures: No Hx Kidney Stones: No Hx Asthma: No Hx COPD: No Hx Dementia: No Hx HIV: No Additional medical history: ulcerative collitis / FATTY LIVER, MYCOSIS fungoides - Surgical History Hx Coronary Stent: No Hx Open Heart Surgery: No Hx Pacemaker: No Hx Internal Defibrillator: No Hx Cholecystectomy: No Hx Appendectomy: No Hx Breast Surgery: No Additional Surgical History: benign rectal polyps removed. uterus scraped - Social History Smoking Status: Never Smoker Substance Use Type: None - Medications Home Medications: Home Medications Medication Instructions Recorded Confirmed Last Taken Type Loperamide [Imodium] 4 mg PO BID PRN #20 capsule 01/08/16 12/25/16 Unknown Rx Doxycycline 40 mg PO DAILY 12/19/16 12/25/16 Unknown History Aspirin EC [Aspirin Enteric Coated 325 mg PO QDAY #30 tablet.dr 01/11/17 Unknown Rx TAB] QUEtiapine 100 mg PO QHS #30 01/11/17 Unknown Rx Simvastatin [Zocor TAB] 20 mg PO QHS #30 tablet 01/11/17 Unknown Rx amLODIPine [Norvasc] 10 mg PO QDAY #30 tablet 01/11/17 Unknown Rx cloNIDine [Catapres] 0.2 mg PO BID #60 tablet 01/11/17 Unknown Rx hydrOXYzine 10 mg PO QHS #30 01/11/17 Unknown Rx ED Physical Exam - General Limitations: No Limitations General appearance: alert, in no apparent distress - Head Head exam: Present: atraumatic, normocephalic, normal inspection - Eye Eye exam: Present: normal appearance - ENT ENT exam: Present: normal exam, normal orophraynx, mucous membranes moist - Neck Neck exam: Present: normal inspection, full ROM. Absent: tenderness, meningismus, lymphadenopathy, thyromegaly - Respiratory Respiratory exam: Present: normal lung sounds bilaterally - Cardiovascular Cardiovascular Exam: Present: regular rate, normal rhythm, normal heart sounds - GI/Abdominal GI/Abdominal exam: Present: soft, hyperactive bowel sounds. Absent: distended, tenderness, guarding, rebound, rigid, organomegaly, mass, bruit, pulsatile mass , hernia - Extremities Exam Extremities exam: Present: normal inspection, full ROM, normal capillary refill - Back Exam Back exam: Present: normal inspection, full ROM - Neurological Exam Neurological exam: Present: alert, oriented X3, CN II-XII intact, normal gait, reflexes normal - Skin Skin exam: Present: warm, intact, normal color ED Course Vital Signs 06/30/18 06/30/18 06/30/18 16:52 19:30 19:45 Temperature 98.2 F 97.6 F Pulse Rate 94 H 72 72 Respiratory 20 15 Rate Blood Pressure 175/100 175/100 Blood Pressure 170/95 [Right] O2 Sat by Pulse 100 100 Oximetry - Reevaluation(s) Reevaluation #1: 06/30/18 21:55 Patient stated that she is feeling much better. No nausea or vomiting. Patient also stated that her abdominal pain is completely resolved now. ED Medical Decision Making - Lab Data Result diagrams: 06/30/18 17:02 06/30/18 17:02 - Radiology Data Radiology results: report reviewed Referring Physician: PRESLEY BRODY Patient Name: KATY OSEGUERA Date of : 1955 Sex: Female Report Date: 2018-06-30 Report Status: Finalized [place] [address] XRay Report Signed Patient: KATY OSEGUERA V MR#: [id number] : 1955 Acct:[id number] Age/Sex: 62 / F ADM Date: 06/30/18 Loc: ED Attending Dr: Ordering Physician: PRESLEY BRODY Date of Service: 06/30/18 Procedure(s): XR abd series w cxr 1V Accession Number(s): [id number] cc: PRESLEY BRODY Fluoro Time In Minutes: FINAL REPORT EXAM: XR ABD SERIES W CXR 1V HISTORY: abdominal pain TECHNIQUE: Frontal view of the chest and frontal views of the abdomen and pelvis in the supine and upright positions Comparison: X-ray abdomen and pelvis dated January 08, 2016 FINDINGS: X-ray chest: There is no evidence of infiltrate, pneumothorax or pleural fluid collection. The cardiac silhouette is enlarged. The thoracic aorta and bony structures are unremarkable. Visualization detail of the thoracic spine is limited. A left port catheter is demonstrated with the tip projected in the region of the caval atrial junction. X-ray abdomen and pelvis: The bowel gas pattern is nonspecific with air in variably distended loops of stomach, small bowel and colon with air-fluid levels on the upright view. Stool is demonstrated in portions of the colon. There is no evidence of pneumoperitoneum nor organomegaly. The bony structures are unremarkable. IMPRESSION: 1. No evidence of an acute pulmonary process. 2. Nonspecific bowel gas pattern. A bowel obstruction cannot be excluded with this study. If further imaging is required, CT may be helpful. Transcribed By: ED Dictated By: JULIUS PETE MD Electronically Authenticated By: JULIUS PETE MD Signed Date/Time: 06/30/181930 DD/ 30 TD/TT: 06/30/181930 Critical care attestation.: If time is entered above; I have spent that time in minutes in the direct care of this critically ill patient, excluding procedure time. ED Disposition Clinical Impression: Abdominal pain, Diarrhea, Malignant hypertension Disposition: DC-01 TO HOME OR SELFCARE Is pt being admited?: No Condition: Stable Instructions: Abdominal Pain (ED), Hypertension (ED) Referrals: PRIMARY CAREMD [Primary Care Provider] - 3-5 Days
--- NOTE | 2018-06-30 19:32 | XRay Report ---
FINAL REPORT EXAM: XR ABD SERIES W CXR 1V HISTORY: abdominal pain TECHNIQUE: Frontal view of the chest and frontal views of the abdomen and pelvis in the supine and upright positions Comparison: X-ray abdomen and pelvis dated January 08, 2016 FINDINGS: X-ray chest: There is no evidence of infiltrate, pneumothorax or pleural fluid collection. The cardiac silhouette is enlarged. The thoracic aorta and bony structures are unremarkable. Visualization detail of the thoracic spine is limited. A left port catheter is demonstrated with the tip projected in the region of the caval atrial junction. X-ray abdomen and pelvis: The bowel gas pattern is nonspecific with air in variably distended loops of stomach, small bowel and colon with air-fluid levels on the upright view. Stool is demonstrated in portions of the colon. There is no evidence of pneumoperitoneum nor organomegaly. The bony structures are unremarkable. IMPRESSION: 1. No evidence of an acute pulmonary process. 2. Nonspecific bowel gas pattern. A bowel obstruction cannot be excluded with this study. If further imaging is required, CT may be helpful.
[2018-06-30 21:19] LABS: Bilirubin,Urine NEG (Negative); Blood,Urine NEG (Negative); Color,Urine Straw (Yellow); Urobilinogen,Urine < 2.0 mg/dL (<2.0)
[2018-06-30 21:27] LABS: Protein,Urine >500 mg/dL (Negative)
[2018-06-30] MEDS ORDERED: CATAPRES PO ONE (22:50)
[2018-06-30 23:30] VITALS: BP 143/115
== END 2018-06-30 23:29 | disposition home or self-care (01) ==
LOC: ED 16:42
DX: R10.9 Unspecified abdominal pain (principal); R19.7 Diarrhea, unspecified; R11.0 Nausea; I10 Essential (primary) hypertension; K21.9 Gastro-esophageal reflux disease without esophagitis; Z86.73 Personal history of transient ischemic attack (TIA), and cerebral infarction without residual deficits; M19.90 Unspecified osteoarthritis, unspecified site; Z91.041 Radiographic dye allergy status; Z88.5 Allergy status to narcotic agent; Z88.0 Allergy status to penicillin; Z88.2 Allergy status to sulfonamides
CPT/HCPCS: 36415; 74022; 80053; 81001; 85007; 85025; 93005; 93010; 96361; 96374; 96375; 99284; J2405; J7030

== ENCOUNTER 2018-07-12 09:38 | Outpatient (CLI) | payer BC ==
--- NOTE | 2018-07-12 14:00 | PET Report ---
PET/CT:07/12/18 09:38:00 CLINICAL: Mycosis fungoides. RADIOPHARMACEUTICAL: 13.538mCi F18-FDG. COMPARISON: 02/01/18 PET/CT TECHNIQUE- Following intravenous injection of F-18 FDG and an approximately 60 minute uptake period, CT and PET images from the mid skull to the upper thighs were acquired with the patient in the fasted state. No contrast was administered. The CT protocol used for this PET CT study is designed for attenuation correction and anatomic localization of PET abnormalities. This document processing specialist CT is not desired to produce and cannot replace, zwbbt-jr-ijo-art diagnostic CT scans with specific imaging protocols for different body parts and indications. Plasma glucose at the time of this test: 98g/dl. The standardized uptake values (SUV) are normalized to patient body weight and indicate the highest activity concentration (SUV max) in a given disease site. FINDINGS: Brain--Physiologic FDG uptake in the visualized regions of the brain. Neck--Physiologic FDG uptake in mucosal structures. No mass or lymphadenopathy. Chest--Physiologic FDG uptake in mediastinal blood pool and myocardium. Lungs--No abnormal uptake. Several new noncalcified non-FDG avid subcentimeter right upper lobe and right middle lobe lung nodules. Pleura/pericardium--No abnormal uptake. Thoracic nodes--No abnormal uptake. Hepatobiliary--No abnormal uptake. Liver background SUV mean, as a reference for comparing FDG studies, is 3.0 compared to 3.0 on the last exam. No liver mass. Spleen--No abnormal uptake. Pancreas--No abnormal uptake. Adrenal Glands--No abnormal uptake. Kidneys/Ureters/Bladder--No abnormal uptake. Abdominopelvic Nodes--No abnormal uptake. Bowel/Peritoneum/Mesentery--No abnormal uptake. Pelvic organs--No abnormal uptake. Bones/Soft Tissues--No abnormal skeletal uptake and no suspicious bone lesion. Previously described FDG avid scan nodules of the left ear, left anterior chest wall and posterior right upper arm have resolved. However, new FDG avid skin lesions involving the right breast at the nipple with SUV 7.8, right posterior flank with SUV 4.6 and left posterior flank with SUV 6.9. IMPRESSION- 1. Resolution of previously described FDG avid skin lesions but new FDG avid skin lesions involving the right breast at the nipple and bilateral posterior flank. 2. Several tiny noncalcified non-FDG avid new right upper lobe and right middle lobe lung nodules. 3. No lymphadenopathy.
== END 2018-07-12 09:39 | disposition home or self-care (01) ==
LOC: PET 09:38
PROVIDERS: ATTEND Internal Medicine Hematology & Oncology
DX: C84.08 Mycosis fungoides, lymph nodes of multiple sites (principal); C84 Mature T/NK-cell lymphomas; I12.9 Hypertensive chronic kidney disease with stage 1 through stage 4 chronic kidney disease, or unspecified chronic kidney disease; N18.4 Chronic kidney disease, stage 4 (severe); E78.00 Pure hypercholesterolemia, unspecified; H10.13 Acute atopic conjunctivitis, bilateral; K21.9 Gastro-esophageal reflux disease without esophagitis; M19.90 Unspecified osteoarthritis, unspecified site; F32.9 Major depressive disorder, single episode, unspecified; F41.9 Anxiety disorder, unspecified; Z86.73 Personal history of transient ischemic attack (TIA), and cerebral infarction without residual deficits; Z79.899 Other long term (current) drug therapy; Z88.0 Allergy status to penicillin; Z88.8 Allergy status to other drugs, medicaments and biological substances; Z79.82 Long term (current) use of aspirin; Z79.01 Long term (current) use of anticoagulants; Z98.891 History of uterine scar from previous surgery; Z86.2 Personal history of diseases of the blood and blood-forming organs and certain disorders involving the immune mechanism; Z88.2 Allergy status to sulfonamides
CPT/HCPCS: 78815; 82962; A9552

== ENCOUNTER 2018-12-07 10:31 | Outpatient (CLI) | payer BC ==
[2018-12-07] MEDS ORDERED: THERMAZENE 50 GRAM TP ONE (12:34)
== END 2018-12-07 10:32 | disposition home or self-care (01) ==
LOC: WOUND 10:31
PROVIDERS: ATTEND Surgery
DX: S41.101A Unspecified open wound of right upper arm, initial encounter (principal); S21.002A Unspecified open wound of left breast, initial encounter; S21.001A Unspecified open wound of right breast, initial encounter; S11.90XA Unspecified open wound of unspecified part of neck, initial encounter; S41.102A Unspecified open wound of left upper arm, initial encounter; S71.001A Unspecified open wound, right hip, initial encounter; S31.000A Unspecified open wound of lower back and pelvis without penetration into retroperitoneum, initial encounter; T45.1X5A Adverse effect of antineoplastic and immunosuppressive drugs, initial encounter; C81.10 Nodular sclerosis Hodgkin lymphoma, unspecified site; Z86.73 Personal history of transient ischemic attack (TIA), and cerebral infarction without residual deficits; X58.XXXA Exposure to other specified factors, initial encounter; Y93.89 Activity, other specified; Y92.89 Other specified places as the place of occurrence of the external cause; Y99.8 Other external cause status
CPT/HCPCS: 99215; G0463

== ENCOUNTER 2018-12-19 11:11 | Outpatient (CLI) | payer BC | END 2018-12-19 11:12 | disposition home or self-care (01) | LOC: WOUND 11:11 | PROVIDERS: ATTEND Surgery | DX: T45.1X5D Adverse effect of antineoplastic and immunosuppressive drugs, subsequent encounter (principal); C81.10 Nodular sclerosis Hodgkin lymphoma, unspecified site; Z86.73 Personal history of transient ischemic attack (TIA), and cerebral infarction without residual deficits; X58.XXXD Exposure to other specified factors, subsequent encounter | CPT/HCPCS: 99212; G0463 ==

== ENCOUNTER 2019-02-06 11:04 | Outpatient (CLI) | payer BC ==
[2019-02-06 11:37] LABS: Hematocrit 27.3 % (30.3-42.9); Hemoglobin 9.1 gm/dl (10.1-14.3); Mean Corpuscular HGB Conc 33 % (30-34); Mean Corpuscular Volume 84 fl (79-97); Platelet Count 262 K/mm3 (140-440); Red Blood Count 3.27 M/mm3 (3.65-5.03); Red Cell Distribution Width 19.3 % (13.2-15.2)
[2019-02-06 12:01] LABS: Albumin 3.8 g/dL (3.9-5); Calcium 8.7 mg/dL (8.4-10.2)
== END 2019-02-06 11:05 | disposition home or self-care (01) ==
LOC: LAB 11:04
PROVIDERS: ATTEND Internal Medicine Nephrology
DX: I12.9 Hypertensive chronic kidney disease with stage 1 through stage 4 chronic kidney disease, or unspecified chronic kidney disease (principal); N18.3 Chronic kidney disease, stage 3 (moderate); M18.4 Other bilateral secondary osteoarthritis of first carpometacarpal joints
CPT/HCPCS: 36415; 80048; 82040; 84100; 85027

== ENCOUNTER 2019-06-10 12:47 | Outpatient (CLI) | payer MEDICARE, BC | END 2019-06-10 12:48 | disposition home or self-care (01) | LOC: WOUND 12:47 | PROVIDERS: ATTEND Surgery | DX: S91.301D Unspecified open wound, right foot, subsequent encounter (principal); G83.9 Paralytic syndrome, unspecified; Z86.73 Personal history of transient ischemic attack (TIA), and cerebral infarction without residual deficits; Z85.6 Personal history of leukemia; X58.XXXD Exposure to other specified factors, subsequent encounter | CPT/HCPCS: 99214; G0463 ==

== ENCOUNTER 2020-12-23 10:54 | Emergency (ER) | payer BC, MEDICARE ==
--- NOTE | 2020-12-23 11:05 | Event Note ---
ED Screening Note Date of service: 12/23/20 Time: 11:03 ED Screening Note: Patient presents with complaints of anxiety x2 weeks She states history of anxiety and that the medication she is currently taking is not helping She denies any SI/HI Patient reports " I have been here many times for this in the past and they normally give me medicine the knocks me out and I wake up and I am fine" This initial assessment/diagnostic orders/clinical plan/treatment(s) is/are subject to change based on patients health status, clinical progression and re- assessment by fellow clinical providers in the ED. Further treatment and workup at subsequent clinical providers discretion. Patient/guardian urged not to elope from the ED as their condition may be serious if not clinically assessed and managed. Initial orders include:
[2020-12-23] MEDS ORDERED: LORazepam 1 MG TAB PO ONE (11:57)
--- NOTE | 2020-12-23 12:04 | Emergency Department Report ---
ED Anxiety HPI - General Chief Complaint: Anxiety Stated Complaint: ANXIETY Time Seen by Provider: 12/23/20 11:03 Source: patient Mode of arrival: Ambulatory - History of Present Illness Initial Comments: 65-year-old female with history of anxiety, CVA, chronic kidney disease, skin cancer, hypertension, presents to ED with worsening anxiety over the last 2 weeks. Patient states she has been very anxious, unable to sleep, worrying a lot. Patient states she has a loss of bone that has triggered this anxiety. Patient reports her PCP prescribes her medication for her, however she did not like the way it made her feel. Patient does not remember the name of the medication that she was given, but states she only took 1 pill. MD Complaint: anxiety -: week(s) (2) Previous History of Same: Yes Quality: constant Provoking factors: emotional stress Improves With: nothing Worsens With: nothing Associated symptoms: denies: chest pain, shortness of breath, palpitations, fever/chills, headaches - Related Data Home Medications: Home Medications Medication Instructions Recorded Confirmed Last Taken Aspirin EC [Aspirin Enteric Coated 81 mg PO DAILY 08/16/18 08/16/18 Unknown TAB] Loratadine (Nf) [Claritin] 10 mg PO DAILY 08/16/18 08/16/18 Unknown Ondansetron [Zofran ODT TAB] 8 mg PO Q8HR 08/16/18 08/16/18 Unknown Quetiapine Fumarate [Seroquel] 100 mg PO QHS 08/16/18 08/16/18 Unknown amLODIPine 10 mg PO DAILY 08/16/18 08/16/18 Unknown Previous Rx's Medication Instructions Recorded Last Taken Type Simvastatin (NF) [Zocor TAB] 20 mg PO QHS #30 tablet 01/11/17 Unknown Rx Acyclovir [Zovirax Cap] 400 mg PO TID #21 cap 08/16/18 Unknown Rx Docusate Sodium [Colace] 100 mg PO BID PRN #14 capsule 08/16/18 Unknown Rx Ondansetron [Zofran Odt] 4 mg PO Q8HR PRN #14 tab.rapdis 08/16/18 Unknown Rx Sodium Phosphate,Haywood-Dibasic 118 ml RC ONCE #1 enema 08/16/18 Unknown Rx [Fleet Enema] traMADoL [Ultram 50 MG tab] 50 mg PO Q4HR PRN #14 tablet 08/16/18 Unknown Rx Allergies/Adverse Reactions: Allergies Allergy/AdvReac Type Severity Reaction Status Date / Time erythromycin base Allergy Swelling Verified 06/30/18 16:52 hydrocodone Allergy Swelling Verified 06/30/18 16:52 Penicillins Allergy Swelling Verified 06/30/18 16:52 Sulfa (Sulfonamide AdvReac DISCOLORATI Verified 06/30/18 16:52 Antibiotics) ON ED Review of Systems ROS: Stated complaint: ANXIETY Other details as noted in HPI Comment: All other systems reviewed and negative Constitutional: denies: chills, fever Respiratory: denies: shortness of breath Cardiovascular: denies: chest pain, palpitations Psychiatric: anxiety. denies: homicidal thoughts, suicidal thoughts ED Past Medical Hx - Past Medical History Previous Medical History?: Yes Hx Hypertension: Yes Hx CVA: Yes (left side deficits) Hx Heart Attack/AMI: No Hx Congestive Heart Failure: No Hx Diabetes: No Hx Deep Vein Thrombosis: No Hx GERD: Yes Hx Renal Disease: Yes Hx of Cancer: Yes (skin) Hx Sickle Cell Disease: No Hx Arthritis: Yes Hx Seizures: No Hx Kidney Stones: No Hx Asthma: No Hx COPD: No Hx Dementia: No Hx HIV: No Additional medical history: ulcerative collitis / FATTY LIVER, MYCOSIS fungoides - Surgical History Past Surgical History?: Yes Hx Coronary Stent: No Hx Open Heart Surgery: No Hx Pacemaker: No Hx Internal Defibrillator: No Hx Cholecystectomy: No Hx Appendectomy: No Hx Breast Surgery: No Additional Surgical History: benign rectal polyps removed. uterus scraped - Social History Smoking Status: Never Smoker Substance Use Type: None - Medications Home Medications: Home Medications Medication Instructions Recorded Confirmed Last Taken Type Simvastatin (NF) [Zocor TAB] 20 mg PO QHS #30 tablet 01/11/17 08/16/18 Unknown Rx Acyclovir [Zovirax Cap] 400 mg PO TID #21 cap 08/16/18 Unknown Rx Aspirin EC [Aspirin Enteric Coated 81 mg PO DAILY 08/16/18 08/16/18 Unknown History TAB] Docusate Sodium [Colace] 100 mg PO BID PRN #14 capsule 08/16/18 Unknown Rx Loratadine (Nf) [Claritin] 10 mg PO DAILY 08/16/18 08/16/18 Unknown History Ondansetron [Zofran ODT TAB] 8 mg PO Q8HR 08/16/18 08/16/18 Unknown History Ondansetron [Zofran Odt] 4 mg PO Q8HR PRN #14 tab.rapdis 08/16/18 Unknown Rx Quetiapine Fumarate [Seroquel] 100 mg PO QHS 08/16/18 08/16/18 Unknown History Sodium Phosphate,[place]wood-Dibasic 118 ml RC ONCE #1 enema 08/16/18 Unknown Rx [Fleet Enema] amLODIPine 10 mg PO DAILY 08/16/18 08/16/18 Unknown History traMADoL [Ultram 50 MG tab] 50 mg PO Q4HR PRN #14 tablet 08/16/18 Unknown Rx ED Physical Exam - General Limitations: No Limitations General appearance: alert, in no apparent distress - Head Head exam: Present: atraumatic, normocephalic - Eye Eye exam: Present: normal appearance, EOMI - ENT ENT exam: Present: mucous membranes moist - Neck Neck exam: Present: normal inspection - Respiratory Respiratory exam: Present: normal lung sounds bilaterally. Absent: respiratory distress - Cardiovascular Cardiovascular Exam: Present: regular rate, normal rhythm - GI/Abdominal GI/Abdominal exam: Present: soft. Absent: distended, tenderness - Extremities Exam Extremities exam: Present: other (Contracture left upper extremity noted) - Neurological Exam Neurological exam: Present: alert, oriented X3 - Psychiatric Psychiatric exam: Present: normal affect, normal mood - Skin Skin exam: Present: warm, dry, intact, normal color ED Course Vital Signs 12/23/20 12/23/20 12/23/20 11:05 11:09 11:59 Temperature 98.3 F 97.8 F Pulse Rate 77 78 Respiratory 18 18 Rate Blood Pressure 152/83 152/83 149/87 Blood Pressure [left arm] O2 Sat by Pulse 100 99 Oximetry 12/23/20 12:47 Temperature Pulse Rate 77 Respiratory 20 Rate Blood Pressure Blood Pressure 149/80 [left arm] O2 Sat by Pulse 100 Oximetry ED Medical Decision Making - Medical Decision Making 65-year-old female presents to ED with complaint of anxiety. Patient does not appear to be anxious on exam, however she was offered a small dose of PO Ativan here in the ED. Patient refused the medication, stating that it does not normally work for her. Patient states she normally gets a "IV drip" of anxiety medications. I explained to the patient that she will not be receiving any IV anxiety medications. Patient reported that she received a prescription from her primary care physician but that she does not like the way it makes her feel. Patient advised to just follow-up with her PCP. She has no SI, HI, or hallucinations. - Differential Diagnosis Anxiety Critical care attestation.: If time is entered above; I have spent that time in minutes in the direct care of this critically ill patient, excluding procedure time. ED Disposition Clinical Impression: Anxiety Disposition: DC-01 TO HOME OR SELFCARE Is pt being admited?: No Condition: Stable Instructions: Managing Anxiety, Adult Referrals: PRIMARY CARE, [Referring] - 3-5 Days [facility] [Outside] - 3-5 Days [facility] [Provider Group] - 3-5 Days Time of Disposition: 12:04
[2020-12-23 12:48] VITALS: BP 149/80
== END 2020-12-23 12:55 | disposition home or self-care (01) ==
LOC: ED 10:54
DX: F41.9 Anxiety disorder, unspecified (principal); I10 Essential (primary) hypertension; K21.9 Gastro-esophageal reflux disease without esophagitis; G40.909 Epilepsy, unspecified, not intractable, without status epilepticus; Z79.899 Other long term (current) drug therapy; Z88.0 Allergy status to penicillin; Z88.2 Allergy status to sulfonamides; Z88.8 Allergy status to other drugs, medicaments and biological substances
CPT/HCPCS: 99282